=== PATIENT | male | born 1965 | race African-American/Black ===

== ENCOUNTER 2018-10-21 11:34 | Inpatient (IN) | payer OTHER ==
[2018-10-21 14:43] VITALS: BMI 24.3
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
[2018-10-21] MEDS ORDERED: chlordiazePOXIDE HCL 25 MG CAPSULE PO PRN (16:14)
[2018-10-21] MEDS ORDERED: ACETAMINOPHEN 325 MG TABLET (FP) PO PRN (16:14)
[2018-10-21] MEDS ORDERED: MAG HYDROX/AL HYDROX/SIMETH 30 ML UNIT-DOSE CUP PO PRN (16:14)
[2018-10-21] MEDS ORDERED: guaiFENesin/D-METHORPHAN HB 10 ML UNIT-DOSE CUPS PO PRN (16:14)
[2018-10-21] MEDS ORDERED: IBUPROFEN 400 MG TABLET (FP) PO PRN (16:14)
[2018-10-21] MEDS ORDERED: MAGNESIUM HYDROX 2400MG/30ML ORAL SUSPENSION 30 ML CUP PO PRN (16:14)
[2018-10-21] MEDS ORDERED: LOPERAMIDE HCL 2 MG CAPSULE PO PRN (16:14)
[2018-10-21] MEDS ORDERED: P-EPHED 60MG/TRIPROLIDI 2.5MG TABLET PO PRN (16:14)
[2018-10-21] MEDS ORDERED: MENTHOL/PHENOL 1 EACH UD MM PRN (16:14)
[2018-10-21] MEDS ORDERED: MAGNESIUM CITRATE 300 ML BOTTLE PO PRN (16:14)
[2018-10-21] MEDS ORDERED: chlordiazePOXIDE HCL 25 MG CAPSULE PO ONE (17:00)
[2018-10-21] MEDS: chlordiazePOXIDE HCL 25 MG CAPSULE PO SCH ×2 (18:15→23:17)
[2018-10-21] MEDS ORDERED: MELATONIN 5 MG TABLETS PO PRN (22:00)
[2018-10-21] MEDS: THIAMINE HCL 100 MG TABLET (FP) PO SCH (23:12)
[2018-10-22] MEDS: chlordiazePOXIDE HCL 25 MG CAPSULE PO SCH ×4 (05:45→22:33)
[2018-10-22] MEDS ORDERED: PATIENT'S OWN MEDICATION (NON-FORMULARY) (Bictegrav/Emtricit/Tenofov Ala [Biktarvy 50-200- PO SCH (10:00)
[2018-10-22 10:07] LABS: HEMOGLOBIN 14.4 GM/dL (11.7-16.9); MCH 31.6 pg (25.7-33.7); MEAN CELL VOLUME 90.3 fl (80-96); MEAN PLT VOLUME 9.1 fl (7.5-11.1); PLATELET COUNT 185 K/MM3 (134-434); RBC 4.54 M/mm3 (4.00-5.60); RDW 13.7 % (11.9-15.9); WHITE BLOOD COUNT 2.6 K/mm3 (4.0-10.0)
[2018-10-22] MEDS: PRENATAL VITAMINS W/ FOLIC ACID TABLET (FP) PO SCH (10:21)
--- NOTE | 2018-10-22 10:23 | PN ---
S CIWA - CIWA Score Nausea/Vomitin-No Nausea/No Vomiting Muscle Tremors: None Anxiety: 4-Mod. Anxious/Guarded Agitation: 4-Moderately Restless Paroxysmal Sweats: 2 Orientation: 0-Oriented Tacttile Disturbances: 0-None Auditory Disturbances: 0-None Visual Disturbances: 0-None Headache: 0-None Present CIWA-Ar Total Score: 10 BHS Progress Note (SOAP) Subjective: PATIENT IRRITABLE, RESTLESS AT TIMES. C/O INTERRUPTED SLEEP. Objective: 10/22/18 10:21 Vital Signs Temperature 97.0 F L 10/22/18 09:01 Pulse Rate 87 10/22/18 09:01 Respiratory Rate 18 10/22/18 09:01 Blood Pressure 132/77 10/22/18 09:01 O2 Sat by Pulse Oximetry (%) Laboratory Tests 10/22/18 07:00 WBC 2.6 L RBC 4.54 Hgb 14.4 Hct 41.0 MCV 90.3 MCH 31.6 MCHC 35.0 RDW 13.7 Plt Count 185 D MPV 9.1 PE: ALERT AND ORIENTED X 3 IRRITABLE, PACES IN UNIT HALLWAY EXT FULL ROM, AMB AD CARLA SKIN MILD FACIAL MOISTURE Assessment: 10/22/18 10:22 WITHDRAWAL SX Plan: CONTINUE DETOX ENCOURAGE ORAL FLUIDS CONTINUE TO MONITOR CLINICALLY
[2018-10-22 10:34] LABS: ALBUMIN 3.2 g/dl (3.4-5.0); ALK PHOS 58 U/L (45-117); ANION GAP 6 MMOL/L (8-16); BILIRUBIN,TOTAL 0.2 mg/dL (0.2-1); BLOOD UREA NITROGEN 16 mg/dL (7-18); CALCIUM 8.1 mg/dL (8.5-10.1); CHLORIDE 109 mmol/L (98-107); CO2 25 mmol/L (21-32); CREATININE 1.1 mg/dL (0.55-1.3); GLUCOSE,RANDOM 110 mg/dL (74-106); SGOT/AST 20 U/L (15-37); SGPT/ALT 18 U/L (13-61); SODIUM 140 mmol/L (136-145); TOT PROT 6.9 g/dl (6.4-8.2)
[2018-10-22] MEDS: THIAMINE HCL 100 MG TABLET (FP) PO SCH (22:33)
[2018-10-23] MEDS: chlordiazePOXIDE HCL 25 MG CAPSULE PO SCH ×2 (06:30→10:09)
[2018-10-23] MEDS ORDERED: PATIENT'S OWN MEDICATION (NON-FORMULARY) (Bictegrav/Emtricit/Tenofov Ala [Biktarvy 50-200- PO SCH (10:00)
[2018-10-23] MEDS: PRENATAL VITAMINS W/ FOLIC ACID TABLET (FP) PO SCH (10:08)
[2018-10-23] MEDS ORDERED: BICTEGRAV/EMTRICIT/TENOFOV (BIKTARVY) 50-200-25 MG TABLET PO SCH (10:56)
--- NOTE | 2018-10-23 11:42 | PN ---
[facility] CIWA - CIWA Score Nausea/Vomitin-No Nausea/No Vomiting Muscle Tremors: 3 Anxiety: 3 Agitation: 3 Paroxysmal Sweats: 3 Orientation: 0-Oriented Tacttile Disturbances: 0-None Auditory Disturbances: 0-None Visual Disturbances: 0-None Headache: 0-None Present CIWA-Ar Total Score: 12 S Progress Note (SOAP) Subjective: sweats mild shakes interrupted sleep anxiety Objective: 10/23/18 11:42 Vital Signs Temperature 97.7 F 10/23/18 09:18 Pulse Rate 77 10/23/18 09:18 Respiratory Rate 16 10/23/18 09:18 Blood Pressure 125/95 10/23/18 09:18 O2 Sat by Pulse Oximetry (%) Laboratory Tests 10/22/18 10/22/18 10/22/18 07:00 07:00 07:00 WBC 2.6 L RBC 4.54 Hgb 14.4 Hct 41.0 MCV 90.3 MCH 31.6 MCHC 35.0 RDW 13.7 Plt Count 185 D MPV 9.1 Sodium 140 Potassium 4.0 Chloride 109 H Carbon Dioxide 25 Anion Gap 6 L BUN 16 Creatinine 1.1 Creat Clearance w eGFR > 60 Random Glucose 110 H Calcium 8.1 L Total Bilirubin 0.2 AST 20 ALT 18 Alkaline Phosphatase 58 Total Protein 6.9 Albumin 3.2 L RPR Titer Nonreactive aaox3 ambulating no acute distress Assessment: 10/23/18 11:44 withdrawal sx Plan: continue detox increase fluids
[2018-10-23] MEDS: BICTEGRAV/EMTRICIT/TENOFOV (BIKTARVY) 50-200-25 MG TABLET PO SCH (11:59)
[2018-10-23] MEDS: chlordiazePOXIDE 5 MG CAPSULE PO SCH ×2 (17:16→22:19)
[2018-10-23] MEDS: THIAMINE HCL 100 MG TABLET (FP) PO SCH (22:18)
[2018-10-24] MEDS: chlordiazePOXIDE 5 MG CAPSULE PO SCH ×2 (05:35→10:04)
[2018-10-24] MEDS: PRENATAL VITAMINS W/ FOLIC ACID TABLET (FP) PO SCH (10:03)
[2018-10-24] MEDS: BICTEGRAV/EMTRICIT/TENOFOV (BIKTARVY) 50-200-25 MG TABLET PO SCH (10:04)
--- NOTE | 2018-10-24 11:12 | PN ---
BHS Progress Note (SOAP) Subjective: interrupted sleep, but better Objective: 10/24/18 11:11 Vital Signs Temperature 97.3 F L 10/24/18 09:07 Pulse Rate 100 H 10/24/18 09:07 Respiratory Rate 18 10/24/18 09:07 Blood Pressure 137/82 10/24/18 09:07 O2 Sat by Pulse Oximetry (%) Laboratory Tests 10/22/18 10/22/18 10/22/18 07:00 07:00 07:00 WBC 2.6 L RBC 4.54 Hgb 14.4 Hct 41.0 MCV 90.3 MCH 31.6 MCHC 35.0 RDW 13.7 Plt Count 185 D MPV 9.1 Sodium 140 Potassium 4.0 Chloride 109 H Carbon Dioxide 25 Anion Gap 6 L BUN 16 Creatinine 1.1 Creat Clearance w eGFR > 60 Random Glucose 110 H Calcium 8.1 L Total Bilirubin 0.2 AST 20 ALT 18 Alkaline Phosphatase 58 Total Protein 6.9 Albumin 3.2 L RPR Titer Nonreactive pt aox3 in nad ambulating Assessment: 10/24/18 11:11 withdrawal sx's neutropenia -likey 2nd to hiv infection 10/24/18 11:13 Plan: cont. detox increase fluids d/c in am
[2018-10-24] MEDS: chlordiazePOXIDE HCL 10 MG CAPSULE PO SCH ×2 (19:05→22:31)
[2018-10-24] MEDS: THIAMINE HCL 100 MG TABLET (FP) PO SCH (22:31)
[2018-10-25] MEDS: chlordiazePOXIDE HCL 10 MG CAPSULE PO SCH (05:48)
--- NOTE | 2018-10-25 08:38 | DS ---
[facility] Detox Discharge Summary Admission Date: 10/21/18 Discharge Date: 10/25/18 - History Present History: Alcohol Dependence, Cocaine Dependence - Physical Exam Results Vital Signs: Vital Signs Temperature 97.7 F 10/25/18 06:11 Pulse Rate 75 10/25/18 06:11 Respiratory Rate 18 10/25/18 06:11 Blood Pressure 121/73 10/25/18 06:11 O2 Sat by Pulse Oximetry (%) - Treatment Hospital Course: Detox Protocol Followed, Detoxed Safely, Responded well, Discharged Condition Good, Rehab Referral Accepted - Medication Discharge Medications: Ambulatory Orders Bictegrav/Emtricit/Tenofov Ala [Biktarvy 50-200-25 mg Tablet] 1 tablet PO DAILY 10/21/18 - Diagnosis (1) Alcohol-induced mood disorder Current Visit: Yes Status: Acute (2) Alcohol dependence with uncomplicated withdrawal Current Visit: Yes Status: Chronic (3) Alcohol-induced sleep disorder Current Visit: Yes Status: Chronic (4) Cocaine dependence, uncomplicated Current Visit: Yes Status: Chronic (5) HIV (human immunodeficiency virus infection) Current Visit: Yes Status: Chronic (6) Nicotine dependence Current Visit: Yes Status: Chronic Qualifiers: Nicotine product type: cigarettes Substance use status: uncomplicated Qualified Code(s): F17.210 - Nicotine dependence, cigarettes, uncomplicated (7) Toothache Current Visit: No Status: Acute (8) Anxiety and depression Current Visit: No Status: Chronic (9) Eczema Current Visit: No Status: Chronic (10) Insomnia Current Visit: No Status: Chronic (11) Syncope Current Visit: No Status: Suspected (12) depression Current Visit: No Status: Suspected - AMA Did Patient Leave Against Medical Advice: No (referred to [facility] rehab)
[2018-10-25 09:15] VITALS: BP 116/85; PULSE 88; TEMP 98.2
[2018-10-25] MEDS: PRENATAL VITAMINS W/ FOLIC ACID TABLET (FP) PO SCH (09:21)
[2018-10-25] MEDS: BICTEGRAV/EMTRICIT/TENOFOV (BIKTARVY) 50-200-25 MG TABLET PO SCH (09:21)
== END 2018-10-25 09:25 | disposition home or self-care (01) | DRG 774 ==
LOC: YASAS 11:34 → Y6N 16:51
PROC: HZ2ZZZZ Detoxification Services for Substance Abuse Treatment (ICD-10-PCS; principal; 2018-10-21)
DX: F10.230 Alcohol dependence with withdrawal, uncomplicated (principal); F10.24 Alcohol dependence with alcohol-induced mood disorder; F10.282 Alcohol dependence with alcohol-induced sleep disorder; F14.20 Cocaine dependence, uncomplicated; F17.210 Nicotine dependence, cigarettes, uncomplicated; F41.8 Other specified anxiety disorders; Z21 Asymptomatic human immunodeficiency virus [HIV] infection status; L30.9 Dermatitis, unspecified; D70.9 Neutropenia, unspecified; K04.7 Periapical abscess without sinus; Z88.0 Allergy status to penicillin
CPT/HCPCS: 36415; 80053; 85027; 86593

== ENCOUNTER 2019-01-15 09:47 | Inpatient (IN) | payer OTHER ==
[2019-01-15 11:19] VITALS: BMI 25.0
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
[2019-01-15] MEDS ORDERED: MENTHOL/PHENOL 1 EACH UD MM PRN (13:32)
[2019-01-15] MEDS ORDERED: NICOTINE POLACRILEX 2 MG GUM BUC PRN (13:32)
[2019-01-15] MEDS ORDERED: chlordiazePOXIDE HCL 10 MG CAPSULE PO PRN (13:32)
[2019-01-15] MEDS ORDERED: hydrOXYzine PAMOATE 25 MG CAPSULE (FP) PO PRN (13:32)
[2019-01-15] MEDS ORDERED: MAG HYDROX/AL HYDROX/SIMETH 30 ML UNIT-DOSE CUP PO PRN (13:32)
[2019-01-15] MEDS ORDERED: METHOCARBAMOL 500 MG TABLET PO PRN (13:32)
[2019-01-15] MEDS ORDERED: ACETAMINOPHEN 325 MG TABLET (FP) PO PRN ×2 (13:32)
[2019-01-15] MEDS ORDERED: ONDANSETRON *ODT* 4 MG TABLET SL PRN (13:32)
[2019-01-15] MEDS ORDERED: BISMUTH SUBSALICYLATE 262 MG/15 ML BTL PO PRN (13:32)
[2019-01-15] MEDS ORDERED: MAGNESIUM HYDROX 2400MG/30ML ORAL SUSPENSION 30 ML CUP PO PRN (13:32)
[2019-01-15] MEDS ORDERED: IBUPROFEN 400 MG TABLET (FP) PO PRN (13:32)
[2019-01-15] MEDS ORDERED: MAGNESIUM CITRATE 300 ML BOTTLE PO PRN (13:32)
[2019-01-15] MEDS: NICOTINE 14 MG/24 HOURS TOPICAL PATCH TD SCH (15:31)
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
[2019-01-15] MEDS: chlordiazePOXIDE HCL 25 MG CAPSULE PO SCH (21:31)
[2019-01-15] MEDS: THIAMINE HCL 100 MG TABLET (FP) PO SCH (21:31)
[2019-01-16] MEDS: chlordiazePOXIDE HCL 25 MG CAPSULE PO SCH ×2 (06:18→13:43)
[2019-01-16] MEDS: PRENATAL VITAMINS W/ FOLIC ACID TABLET (FP) PO SCH (10:06)
[2019-01-16] MEDS: PATIENT'S OWN MEDICATION (NON-FORMULARY) (Bictegrav/Emtricit/Tenofov Ala 1 TABLET) PO SCH (10:06)
[2019-01-16] MEDS: NICOTINE 14 MG/24 HOURS TOPICAL PATCH TD SCH (10:06)
[2019-01-16 10:53] LABS: HEMATOCRIT 45.6 % (35.4-49); HEMOGLOBIN 15.6 GM/dL (11.7-16.9); MCH 31.3 pg (25.7-33.7); MCHC 34.2 g/dl (32.0-35.9); MEAN CELL VOLUME 91.4 fl (80-96); MEAN PLT VOLUME 8.7 fl (7.5-11.1); PLATELET COUNT 201 K/MM3 (134-434); RBC 4.99 M/mm3 (4.00-5.60); RDW 12.9 % (11.9-15.9); WHITE BLOOD COUNT 3.2 K/mm3 (4.0-10.0)
[2019-01-16 11:14] LABS: ALBUMIN 3.3 g/dl (3.4-5.0); ANION GAP 5 MMOL/L (8-16); BILIRUBIN,TOTAL 0.2 mg/dL (0.2-1); BLOOD UREA NITROGEN 16 mg/dL (7-18); CALCIUM 8.7 mg/dL (8.5-10.1); CHLORIDE 107 mmol/L (98-107); CO2 26 mmol/L (21-32); GLUCOSE,RANDOM 113 mg/dL (74-106); POTASSIUM 4.4 mmol/L (3.5-5.1); SODIUM 138 mmol/L (136-145); TOT PROT 7.5 g/dl (6.4-8.2)
[2019-01-16 11:15] LABS: ALK PHOS 69 U/L (45-117); SGOT/AST 15 U/L (15-37); SGPT/ALT 16 U/L (13-61)
--- NOTE | 2019-01-16 15:35 | PN ---
S CIWA - CIWA Score Nausea/Vomitin-No Nausea/No Vomiting Muscle Tremors: 2 Anxiety: 2 Agitation: 0-Normal Activity Paroxysmal Sweats: 3 Orientation: 0-Oriented Tacttile Disturbances: 3-Moderate Itch/Numb/Burn Auditory Disturbances: 0-None Visual Disturbances: 2-Mild Sensitivity Headache: 0-None Present CIWA-Ar Total Score: 12 BHS Progress Note (SOAP) Subjective: Hot / Cold Sensations, Sweating, Tremors, Body Aches. Objective: PATIENT A & O X 3. IN NO ACUTE DISTRESS. 01/16/19 15:32 Vital Signs Temperature 98.1 F 01/16/19 13:42 Pulse Rate 93 H 01/16/19 13:42 Respiratory Rate 18 01/16/19 13:42 Blood Pressure 140/91 01/16/19 13:42 O2 Sat by Pulse Oximetry (%) Laboratory Tests 01/16/19 01/16/19 01/16/19 07:00 07:00 07:00 WBC 3.2 L RBC 4.99 Hgb 15.6 Hct 45.6 MCV 91.4 MCH 31.3 MCHC 34.2 RDW 12.9 Plt Count 201 MPV 8.7 Sodium 138 Potassium 4.4 Chloride 107 Carbon Dioxide 26 Anion Gap 5 L BUN 16 Creatinine 1.0 Creat Clearance w eGFR > 60 Random Glucose 113 H Calcium 8.7 Total Bilirubin 0.2 AST 15 ALT 16 Alkaline Phosphatase 69 Total Protein 7.5 Albumin 3.3 L RPR Titer Nonreactive LABS NOTED. PATIENT HAS HAD LOW WBC LEVELS ON PREVIOUS ADMISSIONS. 01/16/19 15:34 Assessment: 01/16/19 15:33 WITHDRAWAL SYMPTOMS. LEUKOPENIA. 01/16/19 15:34 Plan: CONTINUE DETOX. PRN ROBAXIN PO FOR BODY ACHES / MUSCLE SPASMS.
[2019-01-16] MEDS: THIAMINE HCL 100 MG TABLET (FP) PO SCH (22:25)
[2019-01-16] MEDS: chlordiazePOXIDE 5 MG CAPSULE PO SCH (22:25)
[2019-01-16] MEDS: MELATONIN 5 MG TABLETS PO PRN (22:25)
[2019-01-17] MEDS: chlordiazePOXIDE 5 MG CAPSULE PO SCH ×2 (06:22→12:59)
--- NOTE | 2019-01-17 10:15 | PN ---
S CIWA - CIWA Score Nausea/Vomitin Muscle Tremors: 2 Anxiety: 2 Agitation: 2 Paroxysmal Sweats: 1-Minimal Palms Moist Orientation: 0-Oriented Tacttile Disturbances: 1-Very Mild Itch/Numbness Auditory Disturbances: 1-Very Mild Visual Disturbances: 0-None Headache: 2-Mild CIWA-Ar Total Score: 13 BHS Progress Note (SOAP) Subjective: alert,irritable,anxious,interrupted sleep,tremor Objective: 01/17/19 10:13 Vital Signs Temperature 97.9 F 01/17/19 09:05 Pulse Rate 73 01/17/19 09:05 Respiratory Rate 18 01/17/19 09:05 Blood Pressure 132/82 01/17/19 09:05 O2 Sat by Pulse Oximetry (%) 01/17/19 10:14 Laboratory Last Values WBC 3.2 K/mm3 (4.0-10.0) L 01/16/19 07:00 RBC 4.99 M/mm3 (4.00-5.60) 01/16/19 07:00 Hgb 15.6 GM/dL (11.7-16.9) 01/16/19 07:00 Hct 45.6 % (35.4-49) 01/16/19 07:00 MCV 91.4 fl (80-96) 01/16/19 07:00 MCH 31.3 pg (25.7-33.7) 01/16/19 07:00 MCHC 34.2 g/dl (32.0-35.9) 01/16/19 07:00 RDW 12.9 % (11.9-15.9) 01/16/19 07:00 Plt Count 201 K/MM3 (134-434) 01/16/19 07:00 MPV 8.7 fl (7.5-11.1) 01/16/19 07:00 Sodium 138 mmol/L (136-145) 01/16/19 07:00 Potassium 4.4 mmol/L (3.5-5.1) 01/16/19 07:00 Chloride 107 mmol/L (98-107) 01/16/19 07:00 Carbon Dioxide 26 mmol/L (21-32) 01/16/19 07:00 Anion Gap 5 MMOL/L (8-16) L 01/16/19 07:00 BUN 16 mg/dL (7-18) 01/16/19 07:00 Creatinine 1.0 mg/dL (0.55-1.3) 01/16/19 07:00 Creat Clearance w eGFR > 60 (>60) 01/16/19 07:00 Random Glucose 113 mg/dL (74-106) H 01/16/19 07:00 Calcium 8.7 mg/dL (8.5-10.1) 01/16/19 07:00 Total Bilirubin 0.2 mg/dL (0.2-1) 01/16/19 07:00 AST 15 U/L (15-37) 01/16/19 07:00 ALT 16 U/L (13-61) 01/16/19 07:00 Alkaline Phosphatase 69 U/L (45-117) 01/16/19 07:00 Total Protein 7.5 g/dl (6.4-8.2) 01/16/19 07:00 Albumin 3.3 g/dl (3.4-5.0) L 01/16/19 07:00 RPR Titer Nonreactive (NONREACTIVE) 01/16/19 07:00 Assessment: 01/17/19 10:14 withdrawal symptom Plan: continue detox
[2019-01-17] MEDS: PRENATAL VITAMINS W/ FOLIC ACID TABLET (FP) PO SCH (10:30)
[2019-01-17] MEDS: PATIENT'S OWN MEDICATION (NON-FORMULARY) (Bictegrav/Emtricit/Tenofov Ala 1 TABLET) PO SCH (10:30)
[2019-01-17] MEDS: NICOTINE 14 MG/24 HOURS TOPICAL PATCH TD SCH (10:31)
[2019-01-17] MEDS ORDERED: chlordiazePOXIDE HCL 10 MG CAPSULE PO PRN (21:00)
[2019-01-17] MEDS: THIAMINE HCL 100 MG TABLET (FP) PO SCH (23:11)
[2019-01-17] MEDS: chlordiazePOXIDE HCL 10 MG CAPSULE PO SCH (23:11)
[2019-01-18] MEDS: chlordiazePOXIDE HCL 10 MG CAPSULE PO SCH ×3 (05:31→23:01)
[2019-01-18] MEDS: PRENATAL VITAMINS W/ FOLIC ACID TABLET (FP) PO SCH (10:06)
[2019-01-18] MEDS: PATIENT'S OWN MEDICATION (NON-FORMULARY) (Bictegrav/Emtricit/Tenofov Ala 1 TABLET) PO SCH (10:06)
[2019-01-18] MEDS: NICOTINE 14 MG/24 HOURS TOPICAL PATCH TD SCH (10:06)
--- NOTE | 2019-01-18 12:16 | PN ---
BHS Progress Note (SOAP) Subjective: feeling better little anxiety Objective: 01/18/19 12:15 Vital Signs Temperature 97.7 F 01/18/19 09:47 Pulse Rate 81 01/18/19 09:47 Respiratory Rate 18 01/18/19 09:47 Blood Pressure 118/70 01/18/19 09:47 O2 Sat by Pulse Oximetry (%) aaox3 ambulating no acute distress Assessment: 01/18/19 12:15 mild withdrawal sx Plan: continue detox increase fluids d/c in am
[2019-01-18] MEDS: MELATONIN 5 MG TABLETS PO PRN (22:18)
[2019-01-18] MEDS: THIAMINE HCL 100 MG TABLET (FP) PO SCH (22:18)
[2019-01-19 10:10] VITALS: BP 127/68; PULSE 85; TEMP 98.1
[2019-01-19] MEDS: PRENATAL VITAMINS W/ FOLIC ACID TABLET (FP) PO SCH (10:59)
[2019-01-19] MEDS: PATIENT'S OWN MEDICATION (NON-FORMULARY) (Bictegrav/Emtricit/Tenofov Ala 1 TABLET) PO SCH (10:59)
--- NOTE | 2019-01-19 10:59 | DS ---
[facility] Detox Discharge Summary Admission Date: 01/15/19 Discharge Date: 01/19/19 - History Present History: Alcohol Dependence, Cannabis Dependence, Cocaine Dependence Pertinent Past History: GERD, HIV +, Bipolar D/O and Insomnia - Physical Exam Results Vital Signs: Vital Signs Temperature 98.1 F 01/19/19 09:20 Pulse Rate 85 01/19/19 09:20 Respiratory Rate 18 01/19/19 09:20 Blood Pressure 127/68 01/19/19 09:20 O2 Sat by Pulse Oximetry (%) Pertinent Admission Physical Exam Findings: Withdrawal sx Laboratory Last Values WBC 3.2 K/mm3 (4.0-10.0) L 01/16/19 07:00 RBC 4.99 M/mm3 (4.00-5.60) 01/16/19 07:00 Hgb 15.6 GM/dL (11.7-16.9) 01/16/19 07:00 Hct 45.6 % (35.4-49) 01/16/19 07:00 MCV 91.4 fl (80-96) 01/16/19 07:00 MCH 31.3 pg (25.7-33.7) 01/16/19 07:00 MCHC 34.2 g/dl (32.0-35.9) 01/16/19 07:00 RDW 12.9 % (11.9-15.9) 01/16/19 07:00 Plt Count 201 K/MM3 (134-434) 01/16/19 07:00 MPV 8.7 fl (7.5-11.1) 01/16/19 07:00 Sodium 138 mmol/L (136-145) 01/16/19 07:00 Potassium 4.4 mmol/L (3.5-5.1) 01/16/19 07:00 Chloride 107 mmol/L (98-107) 01/16/19 07:00 Carbon Dioxide 26 mmol/L (21-32) 01/16/19 07:00 Anion Gap 5 MMOL/L (8-16) L 01/16/19 07:00 BUN 16 mg/dL (7-18) 01/16/19 07:00 Creatinine 1.0 mg/dL (0.55-1.3) 01/16/19 07:00 Creat Clearance w eGFR > 60 (>60) 01/16/19 07:00 Random Glucose 113 mg/dL (74-106) H 01/16/19 07:00 Calcium 8.7 mg/dL (8.5-10.1) 01/16/19 07:00 Total Bilirubin 0.2 mg/dL (0.2-1) 01/16/19 07:00 AST 15 U/L (15-37) 01/16/19 07:00 ALT 16 U/L (13-61) 01/16/19 07:00 Alkaline Phosphatase 69 U/L (45-117) 01/16/19 07:00 Total Protein 7.5 g/dl (6.4-8.2) 01/16/19 07:00 Albumin 3.3 g/dl (3.4-5.0) L 01/16/19 07:00 RPR Titer Nonreactive (NONREACTIVE) 01/16/19 07:00 Labs noted - Treatment Hospital Course: Detox Protocol Followed, Detoxed Safely, Responded well, Discharged Condition Good, Rehab Referral Accepted Patient has Accepted a Rehab Referral to: [facility] - Medication Discharge Medications: Ambulatory Orders Bictegrav/Emtricit/Tenofov Ala [Biktarvy 50-200-25 mg Tablet] 1 tablet PO DAILY 10/21/18 - Diagnosis (1) Alcohol dependence with uncomplicated withdrawal Current Visit: Yes Status: Acute (2) Cocaine dependence, uncomplicated Current Visit: Yes Status: Chronic (3) HIV (human immunodeficiency virus infection) Current Visit: Yes Status: Chronic Qualifiers: HIV symptom status: unspecified Qualified Code(s): B20 - Human immunodeficiency virus [HIV] disease (4) Hx of gastroesophageal reflux (GERD) Current Visit: Yes Status: Chronic (5) Nicotine dependence Current Visit: Yes Status: Chronic Qualifiers: Nicotine product type: cigarettes Substance use status: uncomplicated Qualified Code(s): F17.210 - Nicotine dependence, cigarettes, uncomplicated - AMA Did Patient Leave Against Medical Advice: No
== END 2019-01-19 09:25 | disposition home or self-care (01) | DRG 774 ==
LOC: YASAS 09:47 → Y6N 12:27
PROVIDERS: ADMIT Surgery; ATTEND Surgery
PROC: HZ2ZZZZ Detoxification Services for Substance Abuse Treatment (ICD-10-PCS; principal; 2019-01-15)
DX: F10.230 Alcohol dependence with withdrawal, uncomplicated (principal); F14.20 Cocaine dependence, uncomplicated; F12.20 Cannabis dependence, uncomplicated; F19.24 Other psychoactive substance dependence with psychoactive substance-induced mood disorder; F31.9 Bipolar disorder, unspecified; Z21 Asymptomatic human immunodeficiency virus [HIV] infection status; G47.00 Insomnia, unspecified; K21.9 Gastro-esophageal reflux disease without esophagitis; D72.819 Decreased white blood cell count, unspecified; Z88.0 Allergy status to penicillin; Z91.018 Allergy to other foods
CPT/HCPCS: 36415; 80053; 85027; 86593

== ENCOUNTER 2019-03-04 20:53 | Inpatient (IN) | payer OTHER ==
[2019-03-04 22:53] VITALS: BMI 25.0
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
[2019-03-04] MEDS ORDERED: MENTHOL/PHENOL 1 EACH UD MM PRN (23:17)
[2019-03-04] MEDS ORDERED: MELATONIN 5 MG TABLETS PO PRN (23:17)
[2019-03-04] MEDS ORDERED: NICOTINE POLACRILEX 2 MG GUM BUC PRN (23:17)
[2019-03-04] MEDS ORDERED: METHOCARBAMOL 500 MG TABLET PO PRN (23:17)
[2019-03-04] MEDS ORDERED: BISMUTH SUBSALICYLATE 524 MG/30 ML UD PO PRN (23:17)
[2019-03-04] MEDS ORDERED: ACETAMINOPHEN 325 MG TABLET (FP) PO PRN ×2 (23:17)
[2019-03-04] MEDS ORDERED: chlordiazePOXIDE HCL 25 MG CAPSULE PO PRN (23:17)
[2019-03-04] MEDS ORDERED: MAGNESIUM HYDROX 2400MG/30ML ORAL SUSPENSION 30 ML CUP PO PRN (23:17)
[2019-03-04] MEDS ORDERED: MAGNESIUM CITRATE 300 ML BOTTLE PO PRN (23:17)
[2019-03-04] MEDS ORDERED: MAG HYDROX/AL HYDROX/SIMETH 30 ML UNIT-DOSE CUP PO PRN (23:17)
[2019-03-04] MEDS ORDERED: IBUPROFEN 400 MG TABLET (FP) PO PRN (23:17)
[2019-03-04] MEDS ORDERED: hydrOXYzine PAMOATE 25 MG CAPSULE (FP) PO PRN (23:17)
[2019-03-05] MEDS: chlordiazePOXIDE HCL 25 MG CAPSULE PO SCH ×5 (00:34→22:14)
[2019-03-05 09:54] LABS: HEMATOCRIT 46.9 % (35.4-49); HEMOGLOBIN 15.8 GM/dL (11.7-16.9); MCH 30.8 pg (25.7-33.7); MCHC 33.6 g/dl (32.0-35.9); MEAN CELL VOLUME 91.7 fl (80-96); MEAN PLT VOLUME 9.3 fl (7.5-11.1); PLATELET COUNT 204 K/MM3 (134-434); RBC 5.12 M/mm3 (4.00-5.60); RDW 13.5 % (11.9-15.9); WHITE BLOOD COUNT 2.9 K/mm3 (4.0-10.0)
[2019-03-05 10:01] LABS: ALBUMIN 3.5 g/dl (3.4-5.0); ALK PHOS 70 U/L (45-117); ANION GAP 5 MMOL/L (8-16); BILIRUBIN,TOTAL 0.3 mg/dL (0.2-1); BLOOD UREA NITROGEN 12 mg/dL (7-18); CALCIUM 9.4 mg/dL (8.5-10.1); CHLORIDE 102 mmol/L (98-107); CO2 31 mmol/L (21-32); CREATININE 1.1 mg/dL (0.55-1.3); GLUCOSE,RANDOM 66 mg/dL (74-106); POTASSIUM 4.1 mmol/L (3.5-5.1); SGOT/AST 16 U/L (15-37); SGPT/ALT 17 U/L (13-61); SODIUM 138 mmol/L (136-145); TOT PROT 7.6 g/dl (6.4-8.2)
--- NOTE | 2019-03-05 10:03 | PN ---
S CIWA - CIWA Score Nausea/Vomitin-Mild Nausea/No Vomiting Muscle Tremors: 3 Anxiety: 3 Agitation: 3 Paroxysmal Sweats: 1-Minimal Palms Moist Orientation: 2-Disoriented Date<2 days Tacttile Disturbances: 0-None Auditory Disturbances: 0-None Visual Disturbances: 0-None Headache: 1-Very Mild CIWA-Ar Total Score: 14 S Progress Note (SOAP) Subjective: tired hesitate to talk about alcohol withdrawal symptoms discuss healthy lifestyle Objective: 03/05/19 10:14 Vital Signs Temperature 96.5 F L 03/05/19 06:10 Pulse Rate 60 03/05/19 06:10 Respiratory Rate 18 03/05/19 06:10 Blood Pressure 110/64 03/05/19 06:10 O2 Sat by Pulse Oximetry (%) Laboratory Last Values WBC 2.9 K/mm3 (4.0-10.0) L 03/05/19 07:00 RBC 5.12 M/mm3 (4.00-5.60) 03/05/19 07:00 Hgb 15.8 GM/dL (11.7-16.9) 03/05/19 07:00 Hct 46.9 % (35.4-49) 03/05/19 07:00 MCV 91.7 fl (80-96) 03/05/19 07:00 MCH 30.8 pg (25.7-33.7) 03/05/19 07:00 MCHC 33.6 g/dl (32.0-35.9) 03/05/19 07:00 RDW 13.5 % (11.9-15.9) 03/05/19 07:00 Plt Count 204 K/MM3 (134-434) 03/05/19 07:00 MPV 9.3 fl (7.5-11.1) 03/05/19 07:00 Sodium 138 mmol/L (136-145) 03/05/19 07:00 Potassium 4.1 mmol/L (3.5-5.1) 03/05/19 07:00 Chloride 102 mmol/L (98-107) 03/05/19 07:00 Carbon Dioxide 31 mmol/L (21-32) 03/05/19 07:00 Anion Gap 5 MMOL/L (8-16) L 03/05/19 07:00 BUN 12 mg/dL (7-18) 03/05/19 07:00 Creatinine 1.1 mg/dL (0.55-1.3) 03/05/19 07:00 Creat Clearance w eGFR 70.02 (>60) 03/05/19 07:00 Random Glucose 66 mg/dL (74-106) L 03/05/19 07:00 Calcium 9.4 mg/dL (8.5-10.1) 03/05/19 07:00 Total Bilirubin 0.3 mg/dL (0.2-1) 03/05/19 07:00 AST 16 U/L (15-37) 03/05/19 07:00 ALT 17 U/L (13-61) 03/05/19 07:00 Alkaline Phosphatase 70 U/L (45-117) 03/05/19 07:00 Total Protein 7.6 g/dl (6.4-8.2) 03/05/19 07:00 Albumin 3.5 g/dl (3.4-5.0) 03/05/19 07:00 lab noted aware hiv status follow up with infectious disease specialist for low wbc Assessment: 03/05/19 10:15 alcohol withdrawal sx hiv Plan: continue detox
[2019-03-05] MEDS: PATIENT'S OWN MEDICATION (NON-FORMULARY) (Bictegrav/Emtricit/Tenofov Ala 1 TABLET) PO SCH (10:13)
[2019-03-05] MEDS: PRENATAL VITAMINS W/ FOLIC ACID TABLET (FP) PO SCH (10:13)
[2019-03-05] MEDS: NICOTINE 14 MG/24 HOURS TOPICAL PATCH TD SCH (10:14)
[2019-03-05] MEDS ORDERED: THIAMINE HCL 100 MG TABLET (FP) PO SCH (22:00)
[2019-03-06] MEDS: chlordiazePOXIDE HCL 25 MG CAPSULE PO SCH ×2 (05:55→10:10)
[2019-03-06] MEDS: PATIENT'S OWN MEDICATION (NON-FORMULARY) (Bictegrav/Emtricit/Tenofov Ala 1 TABLET) PO SCH (10:10)
[2019-03-06] MEDS: PRENATAL VITAMINS W/ FOLIC ACID TABLET (FP) PO SCH (10:10)
[2019-03-06] MEDS: NICOTINE 14 MG/24 HOURS TOPICAL PATCH TD SCH (10:10)
--- NOTE | 2019-03-06 10:25 | PN ---
[facility] CIWA - CIWA Score Nausea/Vomitin-Mild Nausea/No Vomiting Muscle Tremors: 2 Anxiety: 1-Mildly Anxious Agitation: 2 Paroxysmal Sweats: 1-Minimal Palms Moist Orientation: 1-Uncertain about Date Tacttile Disturbances: 0-None Auditory Disturbances: 0-None Visual Disturbances: 0-None Headache: 2-Mild CIWA-Ar Total Score: 10 S Progress Note (SOAP) Subjective: feeling better today wants to be discharge tomorrow that has an appointment with infectious disease specialist tomorrow Objective: 03/06/19 10:27 Vital Signs Temperature 96.7 F L 03/06/19 09:18 Pulse Rate 73 03/06/19 09:18 Respiratory Rate 18 03/06/19 09:18 Blood Pressure 109/71 03/06/19 09:18 O2 Sat by Pulse Oximetry (%) Laboratory Last Values WBC 2.9 K/mm3 (4.0-10.0) L 03/05/19 07:00 RBC 5.12 M/mm3 (4.00-5.60) 03/05/19 07:00 Hgb 15.8 GM/dL (11.7-16.9) 03/05/19 07:00 Hct 46.9 % (35.4-49) 03/05/19 07:00 MCV 91.7 fl (80-96) 03/05/19 07:00 MCH 30.8 pg (25.7-33.7) 03/05/19 07:00 MCHC 33.6 g/dl (32.0-35.9) 03/05/19 07:00 RDW 13.5 % (11.9-15.9) 03/05/19 07:00 Plt Count 204 K/MM3 (134-434) 03/05/19 07:00 MPV 9.3 fl (7.5-11.1) 03/05/19 07:00 Sodium 138 mmol/L (136-145) 03/05/19 07:00 Potassium 4.1 mmol/L (3.5-5.1) 03/05/19 07:00 Chloride 102 mmol/L (98-107) 03/05/19 07:00 Carbon Dioxide 31 mmol/L (21-32) 03/05/19 07:00 Anion Gap 5 MMOL/L (8-16) L 03/05/19 07:00 BUN 12 mg/dL (7-18) 03/05/19 07:00 Creatinine 1.1 mg/dL (0.55-1.3) 03/05/19 07:00 Creat Clearance w eGFR 70.02 (>60) 03/05/19 07:00 Random Glucose 66 mg/dL (74-106) L 03/05/19 07:00 Calcium 9.4 mg/dL (8.5-10.1) 03/05/19 07:00 Total Bilirubin 0.3 mg/dL (0.2-1) 03/05/19 07:00 AST 16 U/L (15-37) 03/05/19 07:00 ALT 17 U/L (13-61) 03/05/19 07:00 Alkaline Phosphatase 70 U/L (45-117) 03/05/19 07:00 Total Protein 7.6 g/dl (6.4-8.2) 03/05/19 07:00 Albumin 3.5 g/dl (3.4-5.0) 03/05/19 07:00 RPR Titer Nonreactive (NONREACTIVE) 03/05/19 07:00 lab noted low wbc patient agrees to follow up with infectious disease specialist Assessment: 03/06/19 10:28 mild alcohol withdrawal sx Plan: continue detox
[2019-03-06 13:23] VITALS: BP 117/77; PULSE 79; TEMP 97.9
--- NOTE | 2019-03-06 14:31 | DS ---
[facility] Detox Discharge Summary Admission Date: 03/04/19 Discharge Date: 03/06/19 - History Present History: Alcohol Dependence Additional Comments: 54 years old male admitted on 03/04/19 for alcohol withdrawal stabilization insists to leave the detox unit today patient preferring to return to infectious disease specialist for follow up Pertinent Past History: bring in medication list and lab report to follow up appointment patient requesting to leave the detox unit two days earlier alert no acute distress denies suicidal ideation aftercare return to ID specialist - Physical Exam Results Vital Signs: Vital Signs Temperature 97.9 F 03/06/19 13:22 Pulse Rate 79 03/06/19 13:22 Respiratory Rate 18 03/06/19 13:22 Blood Pressure 117/77 03/06/19 13:22 O2 Sat by Pulse Oximetry (%) Pertinent Admission Physical Exam Findings: alcohol withdrawal sx Laboratory Last Values WBC 2.9 K/mm3 (4.0-10.0) L 03/05/19 07:00 RBC 5.12 M/mm3 (4.00-5.60) 03/05/19 07:00 Hgb 15.8 GM/dL (11.7-16.9) 03/05/19 07:00 Hct 46.9 % (35.4-49) 03/05/19 07:00 MCV 91.7 fl (80-96) 03/05/19 07:00 MCH 30.8 pg (25.7-33.7) 03/05/19 07:00 MCHC 33.6 g/dl (32.0-35.9) 03/05/19 07:00 RDW 13.5 % (11.9-15.9) 03/05/19 07:00 Plt Count 204 K/MM3 (134-434) 03/05/19 07:00 MPV 9.3 fl (7.5-11.1) 03/05/19 07:00 Sodium 138 mmol/L (136-145) 03/05/19 07:00 Potassium 4.1 mmol/L (3.5-5.1) 03/05/19 07:00 Chloride 102 mmol/L (98-107) 03/05/19 07:00 Carbon Dioxide 31 mmol/L (21-32) 03/05/19 07:00 Anion Gap 5 MMOL/L (8-16) L 03/05/19 07:00 BUN 12 mg/dL (7-18) 03/05/19 07:00 Creatinine 1.1 mg/dL (0.55-1.3) 03/05/19 07:00 Creat Clearance w eGFR 70.02 (>60) 03/05/19 07:00 Random Glucose 66 mg/dL (74-106) L 03/05/19 07:00 Calcium 9.4 mg/dL (8.5-10.1) 03/05/19 07:00 Total Bilirubin 0.3 mg/dL (0.2-1) 03/05/19 07:00 AST 16 U/L (15-37) 03/05/19 07:00 ALT 17 U/L (13-61) 03/05/19 07:00 Alkaline Phosphatase 70 U/L (45-117) 03/05/19 07:00 Total Protein 7.6 g/dl (6.4-8.2) 03/05/19 07:00 Albumin 3.5 g/dl (3.4-5.0) 03/05/19 07:00 RPR Titer Nonreactive (NONREACTIVE) 03/05/19 07:00 lab noted - Treatment Hospital Course: Detox Protocol Followed, Responded well Patient has Accepted a Rehab Referral to: [facility] - Medication Discharge Medications: Ambulatory Orders Bictegrav/Emtricit/Tenofov Ala [Biktarvy 50-200-25 mg Tablet] 1 tablet PO DAILY 10/21/18 - Diagnosis (1) Alcohol dependence with uncomplicated withdrawal Status: Acute (2) GERD (gastroesophageal reflux disease) Status: Chronic Qualifiers: Esophagitis presence: without esophagitis Qualified Code(s): K21.9 - Gastro -esophageal reflux disease without esophagitis (3) HIV (human immunodeficiency virus infection) Status: Chronic Qualifiers: HIV symptom status: asymptomatic Qualified Code(s): Z21 - Asymptomatic human immunodeficiency virus [HIV] infection status (4) Nicotine dependence Status: Acute Qualifiers: Nicotine product type: cigarettes Substance use status: in withdrawal Qualified Code(s): F17.213 - Nicotine dependence, cigarettes, with withdrawal (5) Substance induced mood disorder Status: Suspected - AMA Did Patient Leave Against Medical Advice: Yes
[2019-03-06] MEDS ORDERED: chlordiazePOXIDE HCL 10 MG CAPSULE PO PRN (23:00)
[2019-03-06] MEDS ORDERED: chlordiazePOXIDE HCL 10 MG CAPSULE PO SCH (23:00)
[2019-03-07] MEDS ORDERED: chlordiazePOXIDE HCL 10 MG CAPSULE PO SCH (23:00)
== END 2019-03-06 02:33 | disposition left against medical advice (07) | DRG 770 ==
LOC: YASAS 20:53 → Y3N 23:40
PROVIDERS: ADMIT Surgery; ATTEND Surgery
PROC: HZ2ZZZZ Detoxification Services for Substance Abuse Treatment (ICD-10-PCS; principal; 2019-03-04)
DX: F10.230 Alcohol dependence with withdrawal, uncomplicated (principal); F14.20 Cocaine dependence, uncomplicated; F17.213 Nicotine dependence, cigarettes, with withdrawal; F19.24 Other psychoactive substance dependence with psychoactive substance-induced mood disorder; F41.1 Generalized anxiety disorder; Z88.0 Allergy status to penicillin; Z91.018 Allergy to other foods
CPT/HCPCS: 36415; 80053; 85027; 86593

== ENCOUNTER 2019-04-26 09:16 | Inpatient (IN) | payer OTHER ==
[2019-04-26 09:42] VITALS: BMI 24.3
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
[2019-04-26] MEDS ORDERED: ACETAMINOPHEN 325 MG TABLET (FP) PO PRN (10:36)
[2019-04-26] MEDS ORDERED: MAG HYDROX/AL HYDROX/SIMETH 30 ML UNIT-DOSE CUP PO PRN (10:36)
[2019-04-26] MEDS ORDERED: MAGNESIUM HYDROX 2400MG/30ML ORAL SUSPENSION 30 ML CUP PO PRN (10:36)
[2019-04-26] MEDS ORDERED: MAGNESIUM CITRATE 300 ML BOTTLE PO PRN (10:36)
[2019-04-26] MEDS ORDERED: hydrOXYzine PAMOATE 25 MG CAPSULE (FP) PO PRN (10:36)
[2019-04-26] MEDS ORDERED: BISMUTH SUBSALICYLATE 262 MG/15 ML BTL PO PRN (10:36)
[2019-04-26] MEDS ORDERED: MENTHOL/PHENOL 1 EACH UD MM PRN (10:36)
[2019-04-26] MEDS ORDERED: MELATONIN 5 MG TABLETS PO PRN (10:36)
[2019-04-26] MEDS ORDERED: P-EPHED 60MG/TRIPROLIDI 2.5MG TABLET PO PRN (10:36)
[2019-04-26] MEDS ORDERED: NICOTINE POLACRILEX 2 MG GUM BUC PRN (10:36)
[2019-04-26] MEDS ORDERED: chlordiazePOXIDE HCL 10 MG CAPSULE PO PRN (10:39)
[2019-04-26] MEDS: chlordiazePOXIDE HCL 25 MG CAPSULE PO SCH ×2 (12:40→23:14)
--- NOTE | 2019-04-26 13:28 | EKG ---
Test Reason : Blood Pressure : / mmHG Vent. Rate : 082 BPM Atrial Rate : 082 BPM P-R Int : 150 ms QRS Dur : 092 ms QT Int : 384 ms P-R-T Axes : 070 051 046 degrees QTc Int : 448 ms NORMAL SINUS RHYTHM INCOMPLETE RBBB WHEN COMPARED WITH ECG OF 08-MAY-2010 01:16, NO SIGNIFICANT CHANGE WAS FOUND Confirmed by ALFRED GONZALEZ MD ([id number]) on 04/26/2019 1:27:54 PM Referred By: Confirmed By:ALFRED GONZALEZ MD
[2019-04-26] MEDS: ACETAMINOPHEN 325 MG TABLET (FP) PO PRN (15:24)
[2019-04-26 16:01] LABS: HEMATOCRIT 44.4 % (35.4-49); HEMOGLOBIN 15.1 GM/dL (11.7-16.9); MCH 30.8 pg (25.7-33.7); MEAN CELL VOLUME 90.7 fl (80-96); MEAN PLT VOLUME 9.5 fl (7.5-11.1); PLATELET COUNT 174 K/MM3 (134-434); RBC 4.89 M/mm3 (4.00-5.60); RDW 13.5 % (11.9-15.9); WHITE BLOOD COUNT 7.3 K/mm3 (4.0-10.0)
[2019-04-26 16:12] LABS: ALBUMIN 3.2 g/dl (3.4-5.0); BILIRUBIN,TOTAL 0.3 mg/dL (0.2-1); BLOOD UREA NITROGEN 10.2 mg/dL (7-18); CALCIUM 8.5 mg/dL (8.5-10.1); CREATININE 0.9 mg/dL (0.55-1.3); POTASSIUM 3.7 mmol/L (3.5-5.1); TOT PROT 7.2 g/dl (6.4-8.2)
[2019-04-26] MEDS: THIAMINE HCL 100 MG TABLET (FP) PO SCH (23:14)
[2019-04-27] MEDS: ACETAMINOPHEN 325 MG TABLET (FP) PO PRN ×2 (03:43→12:34)
[2019-04-27] MEDS: chlordiazePOXIDE HCL 25 MG CAPSULE PO SCH (06:43)
[2019-04-27] MEDS: guaiFENesin 200 MG/10 ML 10 ML UNIT-DOSE CUPS PO PRN (06:51)
[2019-04-27] MEDS: PATIENT'S OWN MEDICATION (NON-FORMULARY) (Bictegrav/Emtricit/Tenofov Ala 1 TABLET) PO SCH (10:11)
[2019-04-27] MEDS: PRENATAL VITAMINS W/ FOLIC ACID TABLET (FP) PO SCH (10:12)
--- NOTE | 2019-04-27 11:16 | PN ---
[facility] CIWA - CIWA Score Nausea/Vomitin Muscle Tremors: None Anxiety: 2 Agitation: 0-Normal Activity Paroxysmal Sweats: 3 Orientation: 0-Oriented Tacttile Disturbances: 0-None Auditory Disturbances: 0-None Visual Disturbances: 0-None Headache: 3-Moderate CIWA-Ar Total Score: 10 B[facility] Progress Note (SOAP) Subjective: PATIENT C/O FEELING TIRED, ANXIETY, SWEATING AND HEADACHE. Objective: 04/27/19 11:14 PE: ALERT AND ORIENTED X 3 SKIN WARM AND DRY +PERRLA, +NASAL CONGESTION EXT FULL ROM, AMB AD CARLA ANXIOUS Assessment: 04/27/19 11:15 WITHDRAWAL SX Plan: CONTINUE DETOX ENCOURAGED FLUIDS MONITOR CLINICALLY
[2019-04-27] MEDS: chlordiazePOXIDE 5 MG CAPSULE PO SCH ×2 (14:36→22:32)
[2019-04-27] MEDS: IBUPROFEN 400 MG TABLET (FP) PO PRN (19:49)
[2019-04-27] MEDS: THIAMINE HCL 100 MG TABLET (FP) PO SCH (22:33)
[2019-04-28] MEDS: guaiFENesin 200 MG/10 ML 10 ML UNIT-DOSE CUPS PO PRN (06:10)
[2019-04-28] MEDS: chlordiazePOXIDE 5 MG CAPSULE PO SCH (06:13)
[2019-04-28] MEDS: PRENATAL VITAMINS W/ FOLIC ACID TABLET (FP) PO SCH (10:12)
[2019-04-28] MEDS: PATIENT'S OWN MEDICATION (NON-FORMULARY) (Bictegrav/Emtricit/Tenofov Ala 1 TABLET) PO SCH (10:12)
[2019-04-28] MEDS ORDERED: chlordiazePOXIDE HCL 10 MG CAPSULE PO PRN (13:00)
[2019-04-28] MEDS: chlordiazePOXIDE HCL 10 MG CAPSULE PO SCH ×2 (13:06→23:02)
--- NOTE | 2019-04-28 13:27 | PN ---
[facility] CIWA - CIWA Score Nausea/Vomitin-Mild Nausea/No Vomiting Muscle Tremors: 3 Anxiety: 3 Agitation: 3 Paroxysmal Sweats: 3 Orientation: 0-Oriented Tacttile Disturbances: 0-None Auditory Disturbances: 0-None Visual Disturbances: 0-None Headache: 0-None Present CIWA-Ar Total Score: 13 S Progress Note (SOAP) Subjective: Chills, sweating, headache. Patient ordered for chest xray. He denies any h/o PPD positive. As per patient, he had a chest xray done recently at [facility] in which he was dx with URI and received 2 different antibiotic in the ER but no Rx. Objective: 04/28/19 13:24 Last Vital Signs Temp Pulse Resp BP Pulse Ox 97.7 F 80 16 116/59 L 04/28/19 09:42 04/28/19 09:42 04/28/19 09:42 04/28/19 09:42 Laboratory Tests 04/26/19 04/26/19 04/26/19 12:35 12:35 12:35 WBC 7.3 RBC 4.89 Hgb 15.1 Hct 44.4 MCV 90.7 MCH 30.8 MCHC 34.0 RDW 13.5 Plt Count 174 MPV 9.5 Sodium 138 Potassium 3.7 Chloride 106 Carbon Dioxide 27 Anion Gap 5 L BUN 10.2 Creatinine 0.9 Est GFR (CKD-EPI)AfAm 112.62 Est GFR (CKD-EPI)NonAf 97.17 Random Glucose 124 H Calcium 8.5 Total Bilirubin 0.3 AST 14 L ALT 17 Alkaline Phosphatase 69 Total Protein 7.2 Albumin 3.2 L RPR Titer Nonreactive Labs reviewed: serum glucose 124mg/dl Assessment: 04/28/19 13:27 Withdrawal symptoms Hyperglycemia noted Plan: Continue detox Encouraged PO water hydration Hyperglycemia: could be r/t withdrawal, repeat fasting glucose, send HbA1c to rule out DM/Prediabetes
[2019-04-28] MEDS: ACETAMINOPHEN 325 MG TABLET (FP) PO PRN (17:53)
[2019-04-28] MEDS: THIAMINE HCL 100 MG TABLET (FP) PO SCH (23:03)
[2019-04-29] MEDS: chlordiazePOXIDE HCL 10 MG CAPSULE PO SCH (05:56)
[2019-04-29] MEDS: IBUPROFEN 400 MG TABLET (FP) PO PRN (06:58)
[2019-04-29] MEDS: guaiFENesin 200 MG/10 ML 10 ML UNIT-DOSE CUPS PO PRN (07:00)
--- NOTE | 2019-04-29 09:42 | DS ---
[facility] Detox Discharge Summary Admission Date: 04/26/19 Discharge Date: 04/29/19 - History Present History: Alcohol Dependence, Cocaine Dependence - Physical Exam Results Vital Signs: Vital Signs Temperature 98.4 F 04/29/19 09:11 Pulse Rate 84 04/29/19 09:11 Respiratory Rate 17 04/29/19 09:11 Blood Pressure 125/83 04/29/19 09:11 O2 Sat by Pulse Oximetry (%) - Treatment Hospital Course: Detox Protocol Followed, Detoxed Safely, Responded well, Discharged Condition Good, Rehab Referral Accepted - Medication Discharge Medications: Ambulatory Orders Bictegrav/Emtricit/Tenofov Ala [Biktarvy 50-200-25 mg Tablet] 1 tablet PO DAILY 10/21/18 - Diagnosis (1) Alcohol dependence with uncomplicated withdrawal Current Visit: Yes Status: Chronic (2) Cocaine dependence, uncomplicated Current Visit: Yes Status: Chronic (3) Nicotine dependence Current Visit: Yes Status: Chronic Qualifiers: Nicotine product type: cigarettes Substance use status: uncomplicated Qualified Code(s): F17.210 - Nicotine dependence, cigarettes, uncomplicated (4) Alcohol-induced mood disorder Current Visit: No Status: Acute (5) GERD (gastroesophageal reflux disease) Current Visit: Yes Status: Chronic Qualifiers: Esophagitis presence: without esophagitis Qualified Code(s): K21.9 - Gastro -esophageal reflux disease without esophagitis (6) HIV (human immunodeficiency virus infection) Current Visit: Yes Status: Chronic Qualifiers: HIV symptom status: asymptomatic Qualified Code(s): Z21 - Asymptomatic human immunodeficiency virus [HIV] infection status (7) Hx of gastroesophageal reflux (GERD) Current Visit: Yes Status: Chronic (8) Insomnia Current Visit: No Status: Chronic Qualifiers: Insomnia type: unspecified Qualified Code(s): G47.00 - Insomnia, unspecified (9) Substance induced mood disorder Current Visit: No Status: Suspected (10) depression Current Visit: No Status: Suspected - AMA Did Patient Leave Against Medical Advice: No (going home; then will return to go to rehab [facility])
[2019-04-29] MEDS: PRENATAL VITAMINS W/ FOLIC ACID TABLET (FP) PO SCH (10:41)
[2019-04-29] MEDS: PATIENT'S OWN MEDICATION (NON-FORMULARY) (Bictegrav/Emtricit/Tenofov Ala 1 TABLET) PO SCH (10:41)
[2019-04-29 13:56] VITALS: BP 125/78; PULSE 100; TEMP 97.7
== END 2019-04-29 14:23 | disposition home or self-care (01) | DRG 774 ==
LOC: YASAS 09:16 → Y6N 11:12
PROVIDERS: ADMIT Surgery; ATTEND Surgery
PROC: HZ2ZZZZ Detoxification Services for Substance Abuse Treatment (ICD-10-PCS; principal; 2019-04-26)
DX: F10.230 Alcohol dependence with withdrawal, uncomplicated (principal); F14.20 Cocaine dependence, uncomplicated; F17.210 Nicotine dependence, cigarettes, uncomplicated; F10.24 Alcohol dependence with alcohol-induced mood disorder; F19.24 Other psychoactive substance dependence with psychoactive substance-induced mood disorder; F31.9 Bipolar disorder, unspecified; Z21 Asymptomatic human immunodeficiency virus [HIV] infection status; K21.9 Gastro-esophageal reflux disease without esophagitis; G47.00 Insomnia, unspecified; R73.9 Hyperglycemia, unspecified
CPT/HCPCS: 36415; 71046-TC-FY; 73130-TC-RT-FY; 80053; 82947; 83036; 85027; 86593; 93005; 93010

== ENCOUNTER 2019-09-18 10:39 | Inpatient (IN) | payer OTHER ==
[2019-09-18 10:55] VITALS: BMI 25.2
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
[2019-09-18] MEDS ORDERED: MAG HYDROX/AL HYDROX/SIMETH 30 ML UNIT-DOSE CUP PO PRN (11:34)
[2019-09-18] MEDS ORDERED: IBUPROFEN 400 MG TABLET (FP) PO PRN (11:34)
[2019-09-18] MEDS ORDERED: METHOCARBAMOL 500 MG TABLET PO PRN (11:34)
[2019-09-18] MEDS ORDERED: MENTHOL/PHENOL 1 EACH UD MM PRN (11:34)
[2019-09-18] MEDS ORDERED: MAGNESIUM HYDROX 2400MG/30ML ORAL SUSPENSION 30 ML CUP PO PRN (11:34)
[2019-09-18] MEDS ORDERED: ACETAMINOPHEN 325 MG TABLET (FP) PO PRN ×2 (11:34)
[2019-09-18] MEDS ORDERED: hydrOXYzine PAMOATE 25 MG CAPSULE (FP) PO PRN (11:34)
[2019-09-18] MEDS ORDERED: BISMUTH SUBSALICYLATE 262 MG/15 ML BTL PO PRN (11:34)
[2019-09-18] MEDS ORDERED: MAGNESIUM CITRATE 300 ML BOTTLE PO PRN (11:34)
[2019-09-18] MEDS ORDERED: chlordiazePOXIDE HCL 25 MG CAPSULE PO PRN (11:34)
--- NOTE | 2019-09-18 12:23 | EKG ---
Test Reason : Blood Pressure : / mmHG Vent. Rate : 078 BPM Atrial Rate : 078 BPM P-R Int : 166 ms QRS Dur : 090 ms QT Int : 400 ms P-R-T Axes : 071 042 040 degrees QTc Int : 456 ms NORMAL SINUS RHYTHM NORMAL ECG WHEN COMPARED WITH ECG OF 26-APR-2019 11:11, NO SIGNIFICANT CHANGE WAS FOUND Confirmed by YANNICK BROWN MD ([id number]) on 09/18/2019 12:22:41 PM Referred By: Confirmed By:YANNICK BROWN MD
[2019-09-18] MEDS: chlordiazePOXIDE HCL 25 MG CAPSULE PO SCH ×2 (17:39→22:14)
[2019-09-18 17:51] LABS: HEMATOCRIT 46.2 % (35.4-49); HEMOGLOBIN 15.6 GM/dL (11.7-16.9); MCH 31.3 pg (25.7-33.7); MCHC 33.7 g/dl (32.0-35.9); MEAN PLT VOLUME 9.3 fl (7.5-11.1); PLATELET COUNT 188 K/MM3 (134-434); RBC 4.97 M/mm3 (4.00-5.60); RDW 12.9 % (11.9-15.9); WHITE BLOOD COUNT 2.6 K/mm3 (4.0-10.0)
[2019-09-18 18:03] LABS: ALBUMIN 3.7 g/dl (3.4-5.0); BILIRUBIN,TOTAL 0.2 mg/dL (0.2-1); BLOOD UREA NITROGEN 17.7 mg/dL (7-18); CALCIUM 8.8 mg/dL (8.5-10.1); POTASSIUM 4.2 mmol/L (3.5-5.1); TOT PROT 7.3 g/dl (6.4-8.2)
[2019-09-18] MEDS: THIAMINE HCL 100 MG TABLET (FP) PO SCH (22:14)
[2019-09-18] MEDS: MELATONIN 5 MG TABLETS PO PRN (22:15)
[2019-09-19] MEDS: chlordiazePOXIDE HCL 25 MG CAPSULE PO SCH ×4 (06:07→22:43)
[2019-09-19] MEDS ORDERED: PATIENT'S OWN MEDICATION (NON-FORMULARY) (Bictegrav/Emtricit/Tenofov Ala 1 TABLET) PO SCH (10:00)
[2019-09-19] MEDS: NICOTINE 7 MG/24 HOURS TOPICAL PATCH TD SCH (10:07)
[2019-09-19] MEDS: PRENATAL VITAMINS W/ FOLIC ACID TABLET (FP) PO SCH (10:07)
[2019-09-19] MEDS: BICTEGRAV/EMTRICIT/TENOFOV (BIKTARVY) 50-200-25 MG TABLET PO SCH (10:16)
--- NOTE | 2019-09-19 15:11 | PN ---
[facility] CIWA - CIWA Score Nausea/Vomitin-Mild Nausea/No Vomiting Muscle Tremors: 3 Anxiety: 3 Agitation: 2 Paroxysmal Sweats: 2 Orientation: 0-Oriented Tacttile Disturbances: 1-Very Mild Itch/Numbness Auditory Disturbances: 0-None Visual Disturbances: 0-None Headache: 1-Very Mild CIWA-Ar Total Score: 13 S Progress Note (SOAP) Subjective: 54 years old male admitted on 09/18/19 for alcohol withdrawal sx management treated with librium detox regimen feeling tired resting on bed limited conversation with staff Objective: 09/19/19 15:10 Vital Signs Temperature 97.1 F L 09/19/19 13:09 Pulse Rate 84 09/19/19 13:09 Respiratory Rate 16 09/19/19 13:09 Blood Pressure 109/69 09/19/19 13:09 O2 Sat by Pulse Oximetry (%) Laboratory Last Values WBC 2.6 K/mm3 (4.0-10.0) L 09/18/19 11:40 RBC 4.97 M/mm3 (4.00-5.60) 09/18/19 11:40 Hgb 15.6 GM/dL (11.7-16.9) 09/18/19 11:40 Hct 46.2 % (35.4-49) 09/18/19 11:40 MCV 93.0 fl (80-96) 09/18/19 11:40 MCH 31.3 pg (25.7-33.7) 09/18/19 11:40 MCHC 33.7 g/dl (32.0-35.9) 09/18/19 11:40 RDW 12.9 % (11.9-15.9) 09/18/19 11:40 Plt Count 188 K/MM3 (134-434) 09/18/19 11:40 MPV 9.3 fl (7.5-11.1) 09/18/19 11:40 Sodium 144 mmol/L (136-145) 09/18/19 11:40 Potassium 4.2 mmol/L (3.5-5.1) 09/18/19 11:40 Chloride 111 mmol/L (98-107) H 09/18/19 11:40 Carbon Dioxide 26 mmol/L (21-32) 09/18/19 11:40 Anion Gap 7 MMOL/L (8-16) L 09/18/19 11:40 BUN 17.7 mg/dL (7-18) 09/18/19 11:40 Creatinine 1.0 mg/dL (0.55-1.3) 09/18/19 11:40 Est GFR (CKD-EPI)AfAm 99.15 09/18/19 11:40 Est GFR (CKD-EPI)NonAf 85.55 09/18/19 11:40 Random Glucose 84 mg/dL (74-106) 09/18/19 11:40 Calcium 8.8 mg/dL (8.5-10.1) 09/18/19 11:40 Total Bilirubin 0.2 mg/dL (0.2-1) 09/18/19 11:40 AST 16 U/L (15-37) 09/18/19 11:40 ALT 12 U/L (13-61) L 09/18/19 11:40 Alkaline Phosphatase 60 U/L (45-117) 09/18/19 11:40 Total Protein 7.3 g/dl (6.4-8.2) 09/18/19 11:40 Albumin 3.7 g/dl (3.4-5.0) 09/18/19 11:40 RPR Titer Nonreactive (NONREACTIVE) 09/18/19 11:40 lab noted long history of hiv with low wbc Assessment: 09/19/19 15:10 alcohol withdrawal sx managment Plan: continue librium detox regimen
[2019-09-19] MEDS: THIAMINE HCL 100 MG TABLET (FP) PO SCH (22:42)
[2019-09-20] MEDS: chlordiazePOXIDE HCL 25 MG CAPSULE PO SCH ×4 (05:12→22:09)
[2019-09-20] MEDS: BICTEGRAV/EMTRICIT/TENOFOV (BIKTARVY) 50-200-25 MG TABLET PO SCH (10:03)
[2019-09-20] MEDS: PRENATAL VITAMINS W/ FOLIC ACID TABLET (FP) PO SCH (10:03)
[2019-09-20] MEDS: NICOTINE 7 MG/24 HOURS TOPICAL PATCH TD SCH (10:05)
--- NOTE | 2019-09-20 11:32 | PN ---
[facility] CIWA - CIWA Score Nausea/Vomitin-Mild Nausea/No Vomiting Muscle Tremors: 2 Anxiety: 2 Agitation: 2 Paroxysmal Sweats: No Perspiration Orientation: 0-Oriented Tacttile Disturbances: 1-Very Mild Itch/Numbness Auditory Disturbances: 0-None Visual Disturbances: 0-None Headache: 1-Very Mild CIWA-Ar Total Score: 9 [facility] Progress Note (SOAP) Subjective: alert,irritable,anxious,interrupted sleep,pain in the body Objective: 09/20/19 11:32 Vital Signs Temperature 96.4 F L 09/20/19 09:08 Pulse Rate 81 09/20/19 09:08 Respiratory Rate 17 09/20/19 09:08 Blood Pressure 117/64 09/20/19 09:08 O2 Sat by Pulse Oximetry (%) Assessment: 09/20/19 11:32 withdrawal symptom Plan: continue detox,librium regimen
[2019-09-20] MEDS: THIAMINE HCL 100 MG TABLET (FP) PO SCH (22:08)
[2019-09-20] MEDS: MELATONIN 5 MG TABLETS PO PRN (22:09)
[2019-09-21] MEDS ORDERED: chlordiazePOXIDE HCL 10 MG CAPSULE PO PRN
[2019-09-21] MEDS: chlordiazePOXIDE HCL 10 MG CAPSULE PO SCH ×3 (05:16→17:48)
--- NOTE | 2019-09-21 10:10 | PN ---
[facility] CIWA - CIWA Score Nausea/Vomitin-No Nausea/No Vomiting Muscle Tremors: None Anxiety: 3 Agitation: 0-Normal Activity Paroxysmal Sweats: 3 Orientation: 0-Oriented Tacttile Disturbances: 0-None Auditory Disturbances: 0-None Visual Disturbances: 0-None Headache: 2-Mild CIWA-Ar Total Score: 8 BHS Progress Note (SOAP) Subjective: c/o anxiety, headache, and sweats. Objective: 09/21/19 10:09 Vital Signs 09/21/19 09/21/19 09/21/19 03:30 06:26 09:05 Temperature 97.2 F L 96.9 F L Pulse Rate 90 85 Respiratory 18 18 16 Rate Blood Pressure 112/74 109/74 Lab Results WBC 2.6 K/mm3 (4.0-10.0) L 09/18/19 11:40 RBC 4.97 M/mm3 (4.00-5.60) 09/18/19 11:40 Hgb 15.6 GM/dL (11.7-16.9) 09/18/19 11:40 Hct 46.2 % (35.4-49) 09/18/19 11:40 MCV 93.0 fl (80-96) 09/18/19 11:40 MCHC 33.7 g/dl (32.0-35.9) 09/18/19 11:40 RDW 12.9 % (11.9-15.9) 09/18/19 11:40 Plt Count 188 K/MM3 (134-434) 09/18/19 11:40 Sodium 144 mmol/L (136-145) 09/18/19 11:40 Potassium 4.2 mmol/L (3.5-5.1) 09/18/19 11:40 Chloride 111 mmol/L (98-107) H 09/18/19 11:40 Carbon Dioxide 26 mmol/L (21-32) 09/18/19 11:40 Anion Gap 7 MMOL/L (8-16) L 09/18/19 11:40 BUN 17.7 mg/dL (7-18) 09/18/19 11:40 Creatinine 1.0 mg/dL (0.55-1.3) 09/18/19 11:40 Random Glucose 84 mg/dL (74-106) 09/18/19 11:40 Calcium 8.8 mg/dL (8.5-10.1) 09/18/19 11:40 L Laboratory Last Values WBC 2.6 K/mm3 (4.0-10.0) L 09/18/19 11:40 RBC 4.97 M/mm3 (4.00-5.60) 09/18/19 11:40 Hgb 15.6 GM/dL (11.7-16.9) 09/18/19 11:40 Hct 46.2 % (35.4-49) 09/18/19 11:40 MCV 93.0 fl (80-96) 09/18/19 11:40 MCH 31.3 pg (25.7-33.7) 09/18/19 11:40 MCHC 33.7 g/dl (32.0-35.9) 09/18/19 11:40 RDW 12.9 % (11.9-15.9) 09/18/19 11:40 Plt Count 188 K/MM3 (134-434) 09/18/19 11:40 MPV 9.3 fl (7.5-11.1) 09/18/19 11:40 Sodium 144 mmol/L (136-145) 09/18/19 11:40 Potassium 4.2 mmol/L (3.5-5.1) 09/18/19 11:40 Chloride 111 mmol/L (98-107) H 09/18/19 11:40 Carbon Dioxide 26 mmol/L (21-32) 09/18/19 11:40 Anion Gap 7 MMOL/L (8-16) L 09/18/19 11:40 BUN 17.7 mg/dL (7-18) 09/18/19 11:40 Creatinine 1.0 mg/dL (0.55-1.3) 09/18/19 11:40 Est GFR (CKD-EPI)AfAm 99.15 09/18/19 11:40 Est GFR (CKD-EPI)NonAf 85.55 09/18/19 11:40 Random Glucose 84 mg/dL (74-106) 09/18/19 11:40 Calcium 8.8 mg/dL (8.5-10.1) 09/18/19 11:40 Total Bilirubin 0.2 mg/dL (0.2-1) 09/18/19 11:40 AST 16 U/L (15-37) 09/18/19 11:40 ALT 12 U/L (13-61) L 09/18/19 11:40 Alkaline Phosphatase 60 U/L (45-117) 09/18/19 11:40 Total Protein 7.3 g/dl (6.4-8.2) 09/18/19 11:40 Albumin 3.7 g/dl (3.4-5.0) 09/18/19 11:40 RPR Titer Nonreactive (NONREACTIVE) 09/18/19 11:40 Labs noted. Assessment: 09/21/19 10:09 AOX3, in no acute respiratory distress. Full ROM, ambulating in the unit. Withdrawal symptoms. Plan: continue detox.
[2019-09-21] MEDS: PRENATAL VITAMINS W/ FOLIC ACID TABLET (FP) PO SCH (10:26)
[2019-09-21] MEDS: BICTEGRAV/EMTRICIT/TENOFOV (BIKTARVY) 50-200-25 MG TABLET PO SCH (10:26)
[2019-09-21] MEDS: NICOTINE 7 MG/24 HOURS TOPICAL PATCH TD SCH (10:27)
[2019-09-21 17:34] VITALS: BP 125/84; PULSE 85; TEMP 96.5
--- NOTE | 2019-09-21 20:33 | DS ---
[facility] Detox Discharge Summary Admission Date: 09/18/19 Discharge Date: 09/21/19 - History Pertinent Past History: HIV +, depression, bipolar, GERD - Physical Exam Results Vital Signs: Vital Signs Temperature 96.5 F L 09/21/19 17:32 Pulse Rate 85 09/21/19 17:32 Respiratory Rate 18 09/21/19 17:32 Blood Pressure 125/84 09/21/19 17:32 O2 Sat by Pulse Oximetry (%) Pertinent Admission Physical Exam Findings: Laboratory Last Values WBC 2.6 K/mm3 (4.0-10.0) L 09/18/19 11:40 RBC 4.97 M/mm3 (4.00-5.60) 09/18/19 11:40 Hgb 15.6 GM/dL (11.7-16.9) 09/18/19 11:40 Hct 46.2 % (35.4-49) 09/18/19 11:40 MCV 93.0 fl (80-96) 09/18/19 11:40 MCH 31.3 pg (25.7-33.7) 09/18/19 11:40 MCHC 33.7 g/dl (32.0-35.9) 09/18/19 11:40 RDW 12.9 % (11.9-15.9) 09/18/19 11:40 Plt Count 188 K/MM3 (134-434) 09/18/19 11:40 MPV 9.3 fl (7.5-11.1) 09/18/19 11:40 Sodium 144 mmol/L (136-145) 09/18/19 11:40 Potassium 4.2 mmol/L (3.5-5.1) 09/18/19 11:40 Chloride 111 mmol/L (98-107) H 09/18/19 11:40 Carbon Dioxide 26 mmol/L (21-32) 09/18/19 11:40 Anion Gap 7 MMOL/L (8-16) L 09/18/19 11:40 BUN 17.7 mg/dL (7-18) 09/18/19 11:40 Creatinine 1.0 mg/dL (0.55-1.3) 09/18/19 11:40 Est GFR (CKD-EPI)AfAm 99.15 09/18/19 11:40 Est GFR (CKD-EPI)NonAf 85.55 09/18/19 11:40 Random Glucose 84 mg/dL (74-106) 09/18/19 11:40 Calcium 8.8 mg/dL (8.5-10.1) 09/18/19 11:40 Total Bilirubin 0.2 mg/dL (0.2-1) 09/18/19 11:40 AST 16 U/L (15-37) 09/18/19 11:40 ALT 12 U/L (13-61) L 09/18/19 11:40 Alkaline Phosphatase 60 U/L (45-117) 09/18/19 11:40 Total Protein 7.3 g/dl (6.4-8.2) 09/18/19 11:40 Albumin 3.7 g/dl (3.4-5.0) 09/18/19 11:40 RPR Titer Nonreactive (NONREACTIVE) 09/18/19 11:40 - Medication Discharge Medications: Ambulatory Orders Bictegrav/Emtricit/Tenofov Ala [Biktarvy 50-200-25 mg Tablet] 1 tablet PO DAILY 10/21/18 - Diagnosis (1) Alcohol dependence with uncomplicated withdrawal Current Visit: Yes Status: Acute (2) Cocaine dependence, uncomplicated Current Visit: Yes Status: Acute (3) GERD (gastroesophageal reflux disease) Current Visit: Yes Status: Acute Qualifiers: Esophagitis presence: without esophagitis Qualified Code(s): K21.9 - Gastro -esophageal reflux disease without esophagitis (4) HIV (human immunodeficiency virus infection) Current Visit: Yes Status: Chronic Qualifiers: HIV symptom status: asymptomatic Qualified Code(s): Z21 - Asymptomatic human immunodeficiency virus [HIV] infection status (5) Nicotine dependence Current Visit: No Status: Chronic Qualifiers: Nicotine product type: cigarettes Substance use status: uncomplicated Qualified Code(s): F17.210 - Nicotine dependence, cigarettes, uncomplicated - AMA Did Patient Leave Against Medical Advice: Yes
[2019-09-22] MEDS ORDERED: chlordiazePOXIDE HCL 10 MG CAPSULE PO SCH (05:00)
[2019-09-23] MEDS ORDERED: chlordiazePOXIDE HCL 10 MG CAPSULE PO ONE (05:00)
== END 2019-09-21 20:02 | disposition left against medical advice (07) | DRG 770 ==
LOC: YASAS 10:39 → Y3N 11:43
PROVIDERS: ADMIT Allergy & Immunology; ATTEND Allergy & Immunology
PROC: HZ2ZZZZ Detoxification Services for Substance Abuse Treatment (ICD-10-PCS; principal; 2019-09-18)
DX: F10.230 Alcohol dependence with withdrawal, uncomplicated (principal); F14.20 Cocaine dependence, uncomplicated; F17.210 Nicotine dependence, cigarettes, uncomplicated; Z21 Asymptomatic human immunodeficiency virus [HIV] infection status; K21.9 Gastro-esophageal reflux disease without esophagitis; R01.1 Cardiac murmur, unspecified; Z88.0 Allergy status to penicillin; Z91.018 Allergy to other foods
CPT/HCPCS: 36415; 80053; 85027; 86593; 93005; 93010

== ENCOUNTER 2019-11-23 13:23 | Inpatient (IN) | payer OTHER ==
[2019-11-23 15:44] VITALS: BMI 23.6
[2019-11-23] MEDS ORDERED: MAGNESIUM HYDROX 2400MG/30ML ORAL SUSPENSION 30 ML CUP PO PRN (17:29)
[2019-11-23] MEDS ORDERED: hydrOXYzine PAMOATE 25 MG CAPSULE (FP) PO PRN (17:29)
[2019-11-23] MEDS ORDERED: NICOTINE POLACRILEX 2 MG GUM BUC PRN (17:29)
[2019-11-23] MEDS ORDERED: P-EPHED 60MG/TRIPROLIDI 2.5MG TABLET PO PRN (17:29)
[2019-11-23] MEDS ORDERED: BISMUTH SUBSALICYLATE 524 MG/30 ML UD PO PRN (17:29)
[2019-11-23] MEDS ORDERED: guaiFENesin 200 MG/10 ML 10 ML UNIT-DOSE CUPS PO PRN (17:29)
[2019-11-23] MEDS ORDERED: MAGNESIUM CITRATE 300 ML BOTTLE PO PRN (17:29)
[2019-11-23] MEDS ORDERED: IBUPROFEN 400 MG TABLET (FP) PO PRN (17:29)
[2019-11-23] MEDS ORDERED: MAG HYDROX/AL HYDROX/SIMETH 30 ML UNIT-DOSE CUP PO PRN (17:29)
[2019-11-23] MEDS ORDERED: ACETAMINOPHEN 325 MG TABLET (FP) PO PRN ×2 (17:29)
[2019-11-23] MEDS ORDERED: PROCHLORPERAZINE MALEATE 5 MG TABLET PO PRN (17:29)
[2019-11-23] MEDS ORDERED: MENTHOL/PHENOL 1 EACH UD MM PRN (17:29)
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
[2019-11-23] MEDS: diazePAM 5 MG TABLET PO SCH ×2 (18:20→22:55)
[2019-11-23] MEDS: diazePAM 5 MG TABLET PO PRN (18:21)
[2019-11-23] MEDS: THIAMINE HCL 100 MG TABLET (FP) PO SCH (22:56)
[2019-11-23] MEDS: MELATONIN 5 MG TABLETS PO PRN (22:56)
[2019-11-24] MEDS: diazePAM 5 MG TABLET PO SCH ×3 (07:06→21:39)
[2019-11-24] MEDS: BICTEGRAV/EMTRICIT/TENOFOV (BIKTARVY) 50-200-25 MG TABLET PO SCH (10:29)
[2019-11-24] MEDS: diazePAM 5 MG TABLET PO PRN (10:30)
[2019-11-24] MEDS: PRENATAL VITAMINS W/ FOLIC ACID TABLET (FP) PO SCH (10:30)
--- NOTE | 2019-11-24 10:31 | PN ---
S CIWA - CIWA Score Nausea/Vomitin-Mild Nausea/No Vomiting Muscle Tremors: 2 Anxiety: 4-Mod. Anxious/Guarded Agitation: 3 Paroxysmal Sweats: 2 Orientation: 0-Oriented Tacttile Disturbances: 0-None Auditory Disturbances: 0-None Visual Disturbances: 0-None Headache: 0-None Present CIWA-Ar Total Score: 12 S Progress Note (SOAP) Subjective: 54 years old male admitted on 11/23/19 for alcohol withdrawal sx management treating with valium detox regimen anxiety trouble sleep at night tremor feeling tired today limited conversation with staff Objective: 11/24/19 10:30 Vital Signs Temperature 98.2 F 11/24/19 09:11 Pulse Rate 99 H 11/24/19 09:11 Respiratory Rate 18 11/24/19 09:11 Blood Pressure 116/82 11/24/19 09:11 O2 Sat by Pulse Oximetry (%) 11/24/19 10:31 lab pending Assessment: 11/24/19 10:31 alcohol withdrawal Plan: valium regimen
[2019-11-24 10:46] LABS: HEMATOCRIT 40.3 % (35.4-49); HEMOGLOBIN 13.6 GM/dL (11.7-16.9); MCHC 33.8 g/dl (32.0-35.9); MEAN CELL VOLUME 88.7 fl (80-96); MEAN PLT VOLUME 8.2 fl (7.5-11.1); PLATELET COUNT 316 K/MM3 (134-434); RBC 4.55 M/mm3 (4.00-5.60); RDW 13.7 % (11.9-15.9); WHITE BLOOD COUNT 5.2 K/mm3 (4.0-10.0)
[2019-11-24 10:54] LABS: ALBUMIN 2.8 g/dl (3.4-5.0); BILIRUBIN,TOTAL 0.2 mg/dL (0.2-1); BLOOD UREA NITROGEN 12.8 mg/dL (7-18); CALCIUM 8.5 mg/dL (8.5-10.1); CREATININE 0.9 mg/dL (0.55-1.3); POTASSIUM 3.9 mmol/L (3.5-5.1); TOT PROT 6.8 g/dl (6.4-8.2)
--- NOTE | 2019-11-24 14:55 | CONSULT ---
[facility] Psychiatric Consult - Data Date of interview: 11/24/19 Admission source: [facility] Identifying data: [employer] Manager approached patient for psychiatric consultation. Patient stated, "i'm tired today. Maybe we can talk tomorrow." Psychiatric consultation refused. Please order another psychiatric consultation if requested by patient.
[2019-11-24] MEDS: THIAMINE HCL 100 MG TABLET (FP) PO SCH (21:39)
[2019-11-24] MEDS: MELATONIN 5 MG TABLETS PO PRN (21:39)
[2019-11-25] MEDS ORDERED: diazePAM 5 MG TABLET PO ONE (06:00)
[2019-11-25] MEDS: PRENATAL VITAMINS W/ FOLIC ACID TABLET (FP) PO SCH (10:27)
[2019-11-25] MEDS: BICTEGRAV/EMTRICIT/TENOFOV (BIKTARVY) 50-200-25 MG TABLET PO SCH (10:28)
--- NOTE | 2019-11-25 11:14 | PN ---
[facility] CIWA - CIWA Score Nausea/Vomitin-Mild Nausea/No Vomiting Muscle Tremors: 2 Anxiety: 2 Agitation: 2 Paroxysmal Sweats: 1-Minimal Palms Moist Orientation: 0-Oriented Tacttile Disturbances: 0-None Auditory Disturbances: 0-None Visual Disturbances: 1-Very Mild Sensitivity Headache: 0-None Present CIWA-Ar Total Score: 9 S Progress Note (SOAP) Subjective: 54 years old male admitted on 11/23/19 for alcohol withdrawal sx management treating with valium detox regimen feeling better today less tremor mild anxiety slept through the night Objective: 11/25/19 11:13 Vital Signs Temperature 98.0 F 11/25/19 09:13 Pulse Rate 88 11/25/19 09:13 Respiratory Rate 18 11/25/19 09:13 Blood Pressure 110/70 11/25/19 09:13 O2 Sat by Pulse Oximetry (%) Laboratory Last Values WBC 5.2 K/mm3 (4.0-10.0) 11/24/19 07:20 RBC 4.55 M/mm3 (4.00-5.60) 11/24/19 07:20 Hgb 13.6 GM/dL (11.7-16.9) 11/24/19 07:20 Hct 40.3 % (35.4-49) 11/24/19 07:20 MCV 88.7 fl (80-96) 11/24/19 07:20 MCH 30.0 pg (25.7-33.7) 11/24/19 07:20 MCHC 33.8 g/dl (32.0-35.9) 11/24/19 07:20 RDW 13.7 % (11.9-15.9) 11/24/19 07:20 Plt Count 316 K/MM3 (134-434) D 11/24/19 07:20 MPV 8.2 fl (7.5-11.1) D 11/24/19 07:20 Sodium 137 mmol/L (136-145) 11/24/19 07:20 Potassium 3.9 mmol/L (3.5-5.1) 11/24/19 07:20 Chloride 104 mmol/L (98-107) 11/24/19 07:20 Carbon Dioxide 29 mmol/L (21-32) 11/24/19 07:20 Anion Gap 4 MMOL/L (8-16) L 11/24/19 07:20 BUN 12.8 mg/dL (7-18) 11/24/19 07:20 Creatinine 0.9 mg/dL (0.55-1.3) 11/24/19 07:20 Est GFR (CKD-EPI)AfAm 112.62 11/24/19 07:20 Est GFR (CKD-EPI)NonAf 97.17 11/24/19 07:20 Random Glucose 97 mg/dL (74-106) 11/24/19 07:20 Calcium 8.5 mg/dL (8.5-10.1) 11/24/19 07:20 Total Bilirubin 0.2 mg/dL (0.2-1) 11/24/19 07:20 AST 17 U/L (15-37) 11/24/19 07:20 ALT 12 U/L (13-61) L 11/24/19 07:20 Alkaline Phosphatase 65 U/L (45-117) 11/24/19 07:20 Total Protein 6.8 g/dl (6.4-8.2) 11/24/19 07:20 Albumin 2.8 g/dl (3.4-5.0) L 11/24/19 07:20 RPR Titer Nonreactive (NONREACTIVE) 11/24/19 07:20 lab noted Assessment: 11/25/19 11:13 alcohol withdrawal Plan: valium regimen
[2019-11-25] MEDS: MELATONIN 5 MG TABLETS PO PRN (22:07)
[2019-11-25] MEDS: THIAMINE HCL 100 MG TABLET (FP) PO SCH (22:07)
[2019-11-26 09:02] VITALS: BP 113/77; PULSE 99; TEMP 96.5
[2019-11-26] MEDS: BICTEGRAV/EMTRICIT/TENOFOV (BIKTARVY) 50-200-25 MG TABLET PO SCH (10:26)
[2019-11-26] MEDS: PRENATAL VITAMINS W/ FOLIC ACID TABLET (FP) PO SCH (10:26)
--- NOTE | 2019-11-26 11:08 | DS ---
[facility] Detox Discharge Summary Admission Date: 11/23/19 Discharge Date: 11/26/19 - History Present History: Alcohol Dependence Additional Comments: 54 yearsj old male admitted on 11/23/19 for alcohol withdrawal sx management treated withn valium detox regimen patient has completed the valium regimen and tolerated well alert oriented x 3 cardiac s1s2 regular rate rhythm respiratory clear lungs bilaterally on auscultation skin warm and dry Pertinent Past History: patient may return to [facility] primary care ID provider for follow up - Physical Exam Results Vital Signs: Vital Signs Temperature 96.5 F L 11/26/19 09:01 Pulse Rate 99 H 11/26/19 09:01 Respiratory Rate 18 11/26/19 09:01 Blood Pressure 113/77 11/26/19 09:01 O2 Sat by Pulse Oximetry (%) Pertinent Admission Physical Exam Findings: alcohol withdrawal Laboratory Last Values WBC 5.2 K/mm3 (4.0-10.0) 11/24/19 07:20 RBC 4.55 M/mm3 (4.00-5.60) 11/24/19 07:20 Hgb 13.6 GM/dL (11.7-16.9) 11/24/19 07:20 Hct 40.3 % (35.4-49) 11/24/19 07:20 MCV 88.7 fl (80-96) 11/24/19 07:20 MCH 30.0 pg (25.7-33.7) 11/24/19 07:20 MCHC 33.8 g/dl (32.0-35.9) 11/24/19 07:20 RDW 13.7 % (11.9-15.9) 11/24/19 07:20 Plt Count 316 K/MM3 (134-434) D 11/24/19 07:20 MPV 8.2 fl (7.5-11.1) D 11/24/19 07:20 Sodium 137 mmol/L (136-145) 11/24/19 07:20 Potassium 3.9 mmol/L (3.5-5.1) 11/24/19 07:20 Chloride 104 mmol/L (98-107) 11/24/19 07:20 Carbon Dioxide 29 mmol/L (21-32) 11/24/19 07:20 Anion Gap 4 MMOL/L (8-16) L 11/24/19 07:20 BUN 12.8 mg/dL (7-18) 11/24/19 07:20 Creatinine 0.9 mg/dL (0.55-1.3) 11/24/19 07:20 Est GFR (CKD-EPI)AfAm 112.62 11/24/19 07:20 Est GFR (CKD-EPI)NonAf 97.17 11/24/19 07:20 Random Glucose 97 mg/dL (74-106) 11/24/19 07:20 Calcium 8.5 mg/dL (8.5-10.1) 11/24/19 07:20 Total Bilirubin 0.2 mg/dL (0.2-1) 11/24/19 07:20 AST 17 U/L (15-37) 11/24/19 07:20 ALT 12 U/L (13-61) L 11/24/19 07:20 Alkaline Phosphatase 65 U/L (45-117) 11/24/19 07:20 Total Protein 6.8 g/dl (6.4-8.2) 11/24/19 07:20 Albumin 2.8 g/dl (3.4-5.0) L 11/24/19 07:20 RPR Titer Nonreactive (NONREACTIVE) 11/24/19 07:20 lab noted - Treatment Hospital Course: Detox Protocol Followed, Detoxed Safely, Responded well, Discharged Condition Good, Rehab Referral Accepted Patient has Accepted a Rehab Referral to: [facility] - Medication Discharge Medications: Ambulatory Orders Bictegrav/Emtricit/Tenofov Ala [Biktarvy 50-200-25 mg Tablet] 1 tablet PO DAILY 10/21/18 - Diagnosis (1) Alcohol dependence with uncomplicated withdrawal Status: Acute (2) GERD (gastroesophageal reflux disease) Status: Chronic Qualifiers: Esophagitis presence: without esophagitis Qualified Code(s): K21.9 - Gastro -esophageal reflux disease without esophagitis (3) HIV (human immunodeficiency virus infection) Status: Chronic Qualifiers: HIV symptom status: asymptomatic Qualified Code(s): Z21 - Asymptomatic human immunodeficiency virus [HIV] infection status (4) Nicotine dependence Status: Acute Qualifiers: Nicotine product type: cigarettes Substance use status: in withdrawal Qualified Code(s): F17.213 - Nicotine dependence, cigarettes, with withdrawal (5) Substance induced mood disorder Status: Suspected - AMA Did Patient Leave Against Medical Advice: No CIWA Score - CIWA Score Nausea/Vomitin-No Nausea/No Vomiting Muscle Tremors: 1-None Visible, but [place] Anxiety: 1-Mildly Anxious Agitation: 1-Slight > Activity Paroxysmal Sweats: 1-Minimal Palms Moist Orientation: 0-Oriented Tacttile Disturbances: 0-None Auditory Disturbances: 0-None Visual Disturbances: 0-None Headache: 0-None Present CIWA-Ar Total Score: 4
== END 2019-11-26 12:58 | disposition home or self-care (01) | DRG 774 ==
LOC: YASAS 13:23 → Y3N 17:45
PROVIDERS: ADMIT Allergy & Immunology; ATTEND Allergy & Immunology
PROC: HZ2ZZZZ Detoxification Services for Substance Abuse Treatment (ICD-10-PCS; principal; 2019-11-23)
DX: F10.230 Alcohol dependence with withdrawal, uncomplicated (principal); F14.20 Cocaine dependence, uncomplicated; F17.210 Nicotine dependence, cigarettes, uncomplicated; F19.21 Other psychoactive substance dependence, in remission; Z21 Asymptomatic human immunodeficiency virus [HIV] infection status; K21.9 Gastro-esophageal reflux disease without esophagitis; Z86.59 Personal history of other mental and behavioral disorders; Z88.0 Allergy status to penicillin; Z91.013 Allergy to seafood
CPT/HCPCS: 36415; 80053; 85027; 86593

== ENCOUNTER 2021-04-13 11:16 | Inpatient (IN) | payer OTHER ==
[2021-04-13 11:59] VITALS: BMI 26.9
[2021-04-13] MEDS ORDERED: METHOCARBAMOL 500 MG TABLET PO PRN (12:47)
[2021-04-13] MEDS ORDERED: MAGNESIUM CITRATE 300 ML BOTTLE PO PRN (12:47)
[2021-04-13] MEDS ORDERED: NICOTINE POLACRILEX 2 MG GUM BUC PRN (12:47)
[2021-04-13] MEDS ORDERED: BISMUTH SUBSALICYLATE 262 MG/15 ML BTL PO PRN (12:47)
[2021-04-13] MEDS ORDERED: MENTHOL/PHENOL 1 EACH UD MM PRN (12:47)
[2021-04-13] MEDS ORDERED: MAGNESIUM HYDROX 2400MG/30ML ORAL SUSPENSION 30 ML CUP PO PRN (12:47)
[2021-04-13] MEDS ORDERED: ACETAMINOPHEN 325 MG TABLET (FP) PO PRN ×2 (12:47)
[2021-04-13] MEDS ORDERED: IBUPROFEN 400 MG TABLET (FP) PO PRN (12:47)
[2021-04-13] MEDS ORDERED: MAG HYDROX/AL HYDROX/SIMETH 30 ML UNIT-DOSE CUP PO PRN (12:47)
[2021-04-13] MEDS ORDERED: ONDANSETRON *ODT* 4 MG TABLET SL PRN (12:47)
[2021-04-13] MEDS: PRENATAL VITAMINS W/ FOLIC ACID TABLET (FP) PO SCH (13:25)
[2021-04-13] MEDS: NICOTINE 14 MG/24 HOURS TOPICAL PATCH TD SCH (13:25)
[2021-04-13] MEDS: hydrOXYzine PAMOATE 25 MG CAPSULE (FP) PO SCH ×3 (13:25→22:41)
[2021-04-13] MEDS: VITAMINS A AND D TOPICAL OINTMENT 60 GM TUBE TP SCH ×2 (17:43→23:22)
[2021-04-13] MEDS: THIAMINE HCL 100 MG TABLET (FP) PO SCH (22:41)
[2021-04-13] MEDS: MELATONIN 5 MG TABLETS PO SCH (22:41)
[2021-04-14] MEDS: hydrOXYzine PAMOATE 25 MG CAPSULE (FP) PO SCH ×5 (05:45→23:02)
[2021-04-14] MEDS: VITAMINS A AND D TOPICAL OINTMENT 60 GM TUBE TP SCH ×3 (05:45→17:41)
[2021-04-14] MEDS: BICTEGRAV/EMTRICIT/TENOFOV (BIKTARVY) 50-200-25 MG TABLET PO SCH (08:50)
[2021-04-14] MEDS ORDERED: ARIPiprazole 10 MG TABLET PO SCH (10:00)
[2021-04-14] MEDS: PRENATAL VITAMINS W/ FOLIC ACID TABLET (FP) PO SCH (10:21)
[2021-04-14] MEDS: NICOTINE 14 MG/24 HOURS TOPICAL PATCH TD SCH (10:21)
[2021-04-14] MEDS: CHOLECALCIFEROL (VIT D3) 1,000 UNIT (25 MCG) TABLET PO SCH (10:21)
[2021-04-14 10:51] LABS: HEMOGLOBIN 15.8 GM/dL (11.7-16.9); MCH 31.5 pg (25.7-33.7); MCHC 34.3 g/dl (32.0-35.9); MEAN CELL VOLUME 91.8 fl (80-96); MEAN PLT VOLUME 9.7 fl (7.5-11.1); PLATELET COUNT 204 K/MM3 (134-434); RBC 5.01 M/mm3 (4.00-5.60); RDW 13.3 % (11.9-15.9); WHITE BLOOD COUNT 3.3 K/mm3 (4.0-10.0)
[2021-04-14 11:15] LABS: CALCIUM 8.6 mg/dL (8.5-10.1)
[2021-04-14 11:16] LABS: ALBUMIN 3.8 g/dl (3.4-5.0)
[2021-04-14 11:20] LABS: BILIRUBIN,TOTAL 0.3 mg/dL (0.2-1); TOT PROT 7.5 g/dl (6.4-8.2)
[2021-04-14] MEDS: MELATONIN 5 MG TABLETS PO SCH (23:02)
[2021-04-14] MEDS: THIAMINE HCL 100 MG TABLET (FP) PO SCH (23:02)
[2021-04-15] MEDS: VITAMINS A AND D TOPICAL OINTMENT 60 GM TUBE TP SCH ×2 (01:08→05:28)
[2021-04-15] MEDS: hydrOXYzine PAMOATE 25 MG CAPSULE (FP) PO SCH ×2 (05:28→10:40)
[2021-04-15] MEDS: BICTEGRAV/EMTRICIT/TENOFOV (BIKTARVY) 50-200-25 MG TABLET PO SCH (08:50)
[2021-04-15 09:23] VITALS: BP 131/74; PULSE 70; TEMP 96.9
[2021-04-15] MEDS: PRENATAL VITAMINS W/ FOLIC ACID TABLET (FP) PO SCH (10:40)
[2021-04-15] MEDS: CHOLECALCIFEROL (VIT D3) 1,000 UNIT (25 MCG) TABLET PO SCH (10:40)
[2021-04-15] MEDS: NICOTINE 14 MG/24 HOURS TOPICAL PATCH TD SCH (10:40)
[2021-04-15] MEDS ORDERED: MASKS NR ONE (10:42)
== END 2021-04-15 11:41 | disposition other institution (70) | DRG 774 ==
LOC: YASAS 11:16 → UNDOADMIN 12:11 → Y6N 12:11
PROVIDERS: ADMIT Allergy & Immunology; ATTEND Allergy & Immunology
PROC: HZ2ZZZZ Detoxification Services for Substance Abuse Treatment (ICD-10-PCS; principal; 2021-04-13)
DX: F10.230 Alcohol dependence with withdrawal, uncomplicated (principal); F14.20 Cocaine dependence, uncomplicated; F17.210 Nicotine dependence, cigarettes, uncomplicated; F19.24 Other psychoactive substance dependence with psychoactive substance-induced mood disorder; F41.8 Other specified anxiety disorders; F32.9 Major depressive disorder, single episode, unspecified; Z21 Asymptomatic human immunodeficiency virus [HIV] infection status; D72.819 Decreased white blood cell count, unspecified; K21.9 Gastro-esophageal reflux disease without esophagitis; L30.9 Dermatitis, unspecified; R01.1 Cardiac murmur, unspecified
CPT/HCPCS: 36415; 80053; 85027; 86780; C9803; U0003; U0005

== ENCOUNTER 2024-02-22 08:44 | Inpatient (IN) | payer OTHER ==
[2024-02-22] MEDS ORDERED: guaiFENesin 600 MG TABLET.ER (FP) PO PRN (10:11)
[2024-02-22] MEDS ORDERED: MAGNESIUM HYDROX 2400MG/30ML ORAL SUSPENSION 30 ML CUP PO PRN (10:11)
[2024-02-22] MEDS ORDERED: POLYETHYLENE GLYCOL (HEALTHYLAX) 3350 17 GM PACKET PO PRN (10:11)
[2024-02-22] MEDS ORDERED: BENZOCAINE/MENTHOL (CHLORASEPTIC ) LOZENGE MM PRN (10:11)
[2024-02-22] MEDS ORDERED: ACETAMINOPHEN 325 MG TABLET (FP) PO PRN (10:11)
[2024-02-22] MEDS ORDERED: BENZONATATE 200 MG CAPSULE PO PRN (10:11)
[2024-02-22] MEDS ORDERED: MAG HYDROX/AL HYDROX/SIMETH 30 ML UNIT-DOSE CUP PO PRN (10:11)
[2024-02-22] MEDS ORDERED: NALOXONE HCL 0.4 MG/ML VIAL IM PRN (10:11)
[2024-02-22] MEDS ORDERED: LOPERAMIDE HCL 2 MG CAPSULE PO PRN (10:11)
[2024-02-22] MEDS ORDERED: NALOXONE HCL (KLOXXADO) 8 MG SPRAY NS PRN (10:11)
[2024-02-22] MEDS ORDERED: hydrOXYzine PAMOATE 25 MG CAPSULE (FP) PO PRN (10:11)
[2024-02-22] MEDS ORDERED: IBUPROFEN 600 MG TABLET (FP) PO PRN (10:11)
[2024-02-22] MEDS ORDERED: IBUPROFEN 400 MG TABLET (FP) PO PRN (10:11)
[2024-02-22] MEDS: BICTEGRAV/EMTRICIT/TENOFOV (BIKTARVY) 50-200-25 MG TABLET PO SCH (11:43)
[2024-02-22 12:14] VITALS: BMI 22.8
[2024-02-22] MEDS: THIAMINE 100 MG TABLET PO SCH (23:07)
[2024-02-22] MEDS: MELATONIN 5 MG TABLETS PO SCH (23:07)
[2024-02-23] MEDS: PRENATAL VITAMINS W/ FOLIC ACID TABLET (FP) PO SCH (10:19)
[2024-02-23] MEDS: NALTREXONE HCL 50 MG TABLET PO SCH (11:04)
[2024-02-23] MEDS: CHOLECALCIFEROL (VIT D3) 400 UNIT (10 MCG) TABLET PO SCH (11:05)
[2024-02-23 11:51] LABS: HEMATOCRIT 45.6 % (35.4-49); HEMOGLOBIN 15.6 GM/dL (11.7-16.9); MCH 31.1 pg (25.7-33.7); MCHC 34.3 g/dl (32.0-35.9); MEAN CELL VOLUME 90.9 fl (80-96); PLATELET COUNT 153 10^3/uL (134-434); RBC 5.01 M/mm3 (4.00-5.60); RDW 13.3 % (11.9-15.9); WHITE BLOOD COUNT 2.7 K/mm3 (4.0-10.0)
[2024-02-23 11:57] LABS: BLOOD UREA NITROGEN 14.5 mg/dL (7-18); CALCIUM 9.3 mg/dL (8.5-10.1)
[2024-02-23 11:59] LABS: ALBUMIN 3.4 g/dl (3.4-5.0)
[2024-02-23 12:02] LABS: BILIRUBIN,TOTAL 0.2 mg/dL (0.2-1)
[2024-02-23 12:03] LABS: TOT PROT 6.9 g/dl (6.4-8.2)
[2024-02-23 12:22] LABS: SYPHILIS W/ RPR CONF NON-REACTIVE (NONREACTIVE)
[2024-02-23] MEDS: ARIPiprazole 5 MG TABLET PO SCH (22:30)
[2024-02-25 15:52] LABS: URINE APPEARANCE CLEAR; URINE BILIRUBIN NEGATIVE (NEGATIVE); URINE COLOR YELLOW; URINE GLUCOSE (UA) NEGATIVE (NEGATIVE); URINE KETONE NEGATIVE (NEGATIVE); URINE LEUK ESTERASE NEGATIVE (NEGATIVE); URINE NITRITE NEGATIVE (NEGATIVE); URINE PROTEIN NEGATIVE (NEGATIVE)
[2024-02-26 05:56] VITALS: BP 139/93; PULSE 77; RESP 17; TEMP 97.6
== END 2024-02-26 16:10 | disposition home or self-care (01) | DRG 772 ==
LOC: YASAS 08:44 → Y3NR 11:48 → Y5N 02-24 14:08
PROVIDERS: ADMIT Allergy & Immunology; ATTEND Psychiatry & Neurology Pain Medicine
PROC: HZ42ZZZ Group Counseling for Substance Abuse Treatment, Cognitive-Behavioral (ICD-10-PCS; principal; 2024-02-22)
DX: F10.20 Alcohol dependence, uncomplicated (principal); F14.20 Cocaine dependence, uncomplicated; F17.210 Nicotine dependence, cigarettes, uncomplicated; F31.9 Bipolar disorder, unspecified; F19.24 Other psychoactive substance dependence with psychoactive substance-induced mood disorder; Z21 Asymptomatic human immunodeficiency virus [HIV] infection status; G47.00 Insomnia, unspecified; K21.9 Gastro-esophageal reflux disease without esophagitis; Z79.899 Other long term (current) drug therapy; Z88.0 Allergy status to penicillin
CPT/HCPCS: 36415; 80053; 80307; 81003; 82140; 85027; 86780; 86803; 87811; 93005; 93010

== ENCOUNTER 2025-05-08 09:21 | Inpatient (IN) | payer OTHER ==
[2025-05-08 09:58] VITALS: BMI 23.8
[2025-05-08] MEDS ORDERED: ACETAMINOPHEN 325 MG TABLET (FP) PO PRN (10:46)
[2025-05-08] MEDS ORDERED: DICYCLOMINE HCL 10 MG CAPSULE PO PRN (10:46)
[2025-05-08] MEDS ORDERED: BENZONATATE 200 MG CAPSULE PO PRN (10:46)
[2025-05-08] MEDS ORDERED: LOPERAMIDE HCL 2 MG CAPSULE PO PRN (10:46)
[2025-05-08] MEDS ORDERED: POLYETHYLENE GLYCOL (HEALTHYLAX) 3350 17 GM PACKET PO PRN (10:46)
[2025-05-08] MEDS ORDERED: IBUPROFEN 600 MG TABLET (FP) PO PRN (10:46)
[2025-05-08] MEDS ORDERED: METHOCARBAMOL 500 MG TABLET PO PRN (10:46)
[2025-05-08] MEDS ORDERED: NALOXONE (NARCAN) HCL 4 MG/0.1 ML SPRAY NS PRN (10:46)
[2025-05-08] MEDS ORDERED: MAG HYDROX/AL HYDROX/SIMETH 30 ML UNIT-DOSE CUP PO PRN (10:46)
[2025-05-08] MEDS ORDERED: BISMUTH SUBSALICYLATE 262 MG/15 ML BTL PO PRN (10:46)
[2025-05-08] MEDS ORDERED: guaiFENesin 600 MG TABLET.ER (FP) PO PRN (10:46)
[2025-05-08] MEDS ORDERED: MAGNESIUM HYDROX 2400MG/30ML ORAL SUSPENSION 30 ML CUP PO PRN (10:46)
[2025-05-08] MEDS ORDERED: IBUPROFEN 400 MG TABLET (FP) PO PRN (10:46)
[2025-05-08] MEDS ORDERED: BENZOCAINE/MENTHOL (CHLORASEPTIC ) LOZENGE MM PRN (10:46)
[2025-05-08] MEDS ORDERED: hydrOXYzine PAMOATE 25 MG CAPSULE (FP) PO PRN (10:46)
[2025-05-08] MEDS: THIAMINE 100 MG TABLET PO SCH (22:42)
[2025-05-08] MEDS: MELATONIN 5 MG TABLETS PO SCH (22:42)
[2025-05-09] MEDS: PRENATAL VITAMINS W/ FOLIC ACID TABLET (FP) PO SCH (09:31)
[2025-05-09] MEDS: BICTEGRAV/EMTRICIT/TENOFOV (BIKTARVY) 50-200-25 MG TABLET PO SCH (09:33)
[2025-05-09] MEDS: FAMOTIDINE 20 MG TABLET PO SCH (09:33)
[2025-05-09] MEDS ORDERED: NICOTINE POLACRILEX 2 MG GUM BUC PRN (10:38)
[2025-05-09 11:47] LABS: MCHC 33.3 g/dl (32.3-36.5); MEAN CELL VOLUME 90.5 fl (79.0-92.2); MEAN PLT VOLUME 12.1 fl (9.4-12.4); RDW 12.1 % (12.2-16.1)
[2025-05-09 13:38] LABS: CO2 28.0 mmol/L (21-32); GLUCOSE,RANDOM 130.0 mg/dL (74-106)
[2025-05-09 13:41] LABS: CREATININE 1.1 mg/dL (0.55-1.3); SGOT/AST 13.0 U/L (15-37)
[2025-05-09 13:42] LABS: SGPT/ALT 20.0 U/L (13-61)
[2025-05-09 13:43] LABS: ALK PHOS 66.0 U/L (45-117); TOT PROT 6.6 g/dl (6.4-8.2)
[2025-05-09] MEDS: POTASSIUM CHLORIDE ORAL LIQUID 20 MEQ/15 ML PO ONE (15:56)
[2025-05-11] MEDS: ONDANSETRON *ODT* 4 MG TABLET SL PRN (04:15)
[2025-05-12 06:27] VITALS: RESP 16
[2025-05-12 08:37] VITALS: BP 126/81; PULSE 69; TEMP 97.1
== END 2025-05-12 09:31 | disposition home or self-care (01) | DRG 774 ==
LOC: YASAS 09:21 → Y3N 11:32
PROVIDERS: ADMIT Allergy & Immunology; ATTEND Allergy & Immunology
PROC: HZ2ZZZZ Detoxification Services for Substance Abuse Treatment (ICD-10-PCS; principal; 2025-05-08)
DX: F10.230 Alcohol dependence with withdrawal, uncomplicated (principal); F41.8 Other specified anxiety disorders; K21.9 Gastro-esophageal reflux disease without esophagitis; Z21 Asymptomatic human immunodeficiency virus [HIV] infection status; F17.210 Nicotine dependence, cigarettes, uncomplicated; F31.9 Bipolar disorder, unspecified; F14.20 Cocaine dependence, uncomplicated
CPT/HCPCS: 36415; 80053; 80305; 80307; 84132; 85027; 86780; 93005; 93010; Q0162